=== PATIENT | female | born 1945 | race Caucasian/White ===

== ENCOUNTER 2025-05-03 10:19 | Inpatient (IN) ==
--- NOTE | 2025-04-16 15:06 | PAT Medication Instructions ---
Medication Instructions Date of Service April 16, 2025 Home Medications Medication Instructions Recorded meloxicam 15 mg tablet 15 mg PO DAILY #30 tabs 08/17/24 valsartan 160 mg tablet 160 mg PO QPM meloxicam 15 mg tablet 15 mg PO DAILY apixaban 5 mg tablet (Eliquis) 5 mg PO BID levothyroxine 50 mcg tablet 50 mcg PO QAM metoprolol succinate 25 mg tablet,extended release 24 hr 25 mg PO QPM hydrochlorothiazide 25 mg tablet 25 mg PO QAM ASK your surgeon for instructions meloxicam 15 mg tablet 15 mg PO DAILY ASK your prescriber and surgeon apixaban 5 mg tablet (Eliquis) 5 mg PO BID DO NOT take the morning of surgery hydrochlorothiazide 25 mg tablet 25 mg PO QAM Take morning of surgery With a small sip of water, OTHERWISE NOTHING TO EAT OR DRINK AFTER MIDNIGHT: levothyroxine 50 mcg tablet 50 mcg PO QAM Take evening before surgery valsartan 160 mg tablet 160 mg PO QPM metoprolol succinate 25 mg tablet,extended release 24 hr 25 mg PO QPM Other Notes If you have any questions please call us at [phone] or [phone] or [phone] or [phone]
--- NOTE | 2025-04-18 08:41 | Anesthesiology Consultation ---
Date of Service April 18, 2025 Assessment & Plan (1) Encounter for pre-operative examination: - pulmonology office visit 05/01/25 [facility]: "...preoperative pulmonary clearance...lung density noted on prior chest x-ray and pulmonary nodules identified on CT...remains asymptomatic from a respiratory standpoint...MMRC dyspnea scale = 4...asymptomatic with stable pulmonary nodules and incidental ground-glass opacity. No evidence of active infection or progressive lung disease...likely benign given lack of interval growth and absence of symptoms... considered low pulmonary risk for the planned procedure based on current findings and absence of respiratory symptoms...cleared from a pulmonary standpoint...recommend the routine post-op pulmonary care of early mobilization as soon as clinically feasible and use incentive spirometry regularly (10 breaths every hour while awake)..." - cardiology clearance 05/01/25 [facility]: "...fluid overload is better and I will clear you for your surgery..." - PCP pre-operative evaluation 04/23/25 [facility]: "...L3-L4 laminectomies...chronic afib, shortness of breath, no worse than usual, no ankle edema...will need to be seen by cardiology for clearance...no medical contraindications for the proposed surgery and anesthesia...get CT of the chest...scheduled for video visit (pulm) 04/30..." - Optimization forms to be faxed to [facility] (Dr. Марина Mims) due to dyspnea on exertion/notation on recently elevated BNP and pending optimization notation in [facility] EMR and [facility] PCP (Dr. Jethro Mckoy) with PAT testing. If cleared by cardiology and PCP, patient is acceptable to proceed. Patient made aware at PAT visit, surgeon's office made aware. - cardiology office visit 02/18/25 [facility]: "...atrial fibrillation with worsening shortness of breath...she suspects that gabapentin may be contributing to her shortness of breath...reduced the dose to once a day, noticing a slight improvement...has noticed weight gain since starting her medications...atrial fibrillation with rate control...no recent palpitations...continue metoprolol...monitor symptoms and fluid status...dyspnea occurs with exertion. Echocardiogram and Holter monitor suggest possible fluid retention due to mitral valve regurgitation and atrial fibrillation. Gabapentin may contribute to symptoms. Decision to delay diuretics until after travel...Contact cardiology upon return to discuss starting diuretics..." Chart Review Chart Review: Acceptable Risk for Surgery and Patient seen in Pre Admission Testing Teaching & Discussion Pre-Anesthesia Teaching/Discussion Notes: Instructed NPO after midnight before surgery, except medications with 15 cc of water. Medication instructions provided according to the PAT guidelines. History Surgery Operation Date: 05/03/25 11:20 Proposed Procedures p L3-L4 Laminectomies - Marcelo Dozier MD Height/Weight Height: 5 ft 3 in Weight: 97.4 kg Allergies Allergy/AdvReac Type Severity Reaction Status Date / Time No Known Allergies Allergy Verified 04/16/25 12:08 Medications Home Medications Medication Instructions Recorded Confirmed Last Taken valsartan 160 mg tablet 160 mg PO QPM 06/28/24 04/16/25 Unknown meloxicam 15 mg tablet 15 mg PO DAILY #30 tabs 08/17/24 04/16/25 Unknown apixaban 5 mg tablet (Eliquis) 5 mg PO BID 11/08/24 04/16/25 Unknown levothyroxine 50 mcg tablet 50 mcg PO QAM 11/08/24 04/16/25 Unknown metoprolol succinate 25 mg 25 mg PO QPM 11/08/24 04/16/25 Unknown tablet,extended release 24 hr hydrochlorothiazide 25 mg tablet 25 mg PO QAM 04/16/25 04/16/25 Unknown Past Medical History Medical History (Updated 04/18/25 @ 12:50 by Ely Armstrong PA-C) Atrial fibrillation on eliquis/metoprolol--follows with Dr. Mims @ [facility] Chronic back pain Hypertension controlled, stable per pt Hypothyroidism Incontinence bladder Prediabetes Patient denies h/o stroke, seizures, heart attack, heart failure, DM, blood clots/DVTs or blood transfusions. Exercise / Class Metabolic Activity III < 4 Walking/Shop/Light housework (Shortness of breath with usual activities and notes improvement with diuretic, denies chest discomfort with usual activities) Past Family History Family History Other No family history of adverse response to anesthesia Past Surgical History Surgical History History of appendectomy History of bilateral cataract extraction History of carpal tunnel release right 11/24/2018 History of left breast biopsy benign History of surgical removal of pilonidal cyst History of wisdom tooth extraction Past Anesthesia History No Hx of Anesthesia Complications and No Family Hx of Anesthesia Complications History of PONV No Hx of PONV and Hx of Motion Sickness Social History Smoking Status: Never smoker Do You Dip or Chew Tobacco: No Hx Alcohol Use: No Hx Substance Use: No substance use type: does not use Review of Systems Snoring in the past, denies witnessed apneas. Patient denies chest pain, shortness of breath, reflux, fever, chills, cough, wheezing, or palpitations. Physical Exam Vital Signs Vitals BP 140/86 P 98 TEMP 98.1 SP02 94% on RA RESP 17 Physical Patient resting comfortably in chair in no acute distress, alert and oriented, responding appropriately throughout visit Full cervical extension range of motion without pain TMD 3.5 finger breadths Mallampati Score 3 Dentition: intact, denies chipped or loose teeth, caps/crowns, implants or hadley dges Lungs: normal respiratory effort. Good air movement, clear throughout to auscultation, no adventitious breath sounds Cardiac: irregularly irregular rhythm, no murmurs noted Carotid arteries: negative bruit bilat Lab Results Anesthesia Preop Results Results Anesthesia Widget: WBC 8.05 K/ul (4.8-10.8) 04/18/25 Hgb 14.7 g/dL (12.0-16.0) 04/18/25 Hct 43.3 % (37.0-47.0) 04/18/25 Plt 267 K/uL (130-400) 04/18/25 Na 139 mmol/L (136-145) 04/18/25 K 4.0 mmol/L (3.5-5.1) 04/18/25 Cl 104 mmol/L (98-107) 04/18/25 CO2 27 mmol/L (21-32) 04/18/25 BUN 18 mg/dl (6-23) 04/18/25 Creat 0.73 mg/dl (0.6-1.2) 04/18/25 Glucose Level 106 mg/dl (70-99(Fasting)) H 04/18/25 PT 10.9 Seconds (9.0-12.0) 04/18/25 PTT 27 Seconds (21-31) 04/18/25 INR 1.0 (0.9-1.1) 04/18/25 HA1c 6.0 % (4.5-5.6) H 04/18/25 Blood Type A Negative 04/18/25 Antibody Screen NEGATIVE 04/18/25 Testing Laboratory Results 04/30/25 BNP: 488 Electrocardiogram Date: 04/18/25 Afib, rate 87 bpm Chest X-Ray Date: 04/18/25 Cardiomediastinal and hilar silhouettes are within normal limits. Atherosclerosis of the aorta. No pneumothorax, pleural effusion, airspace consolidation or pulmonary edema. 12 mm nodular density focus projects over the lateral left lung base. Bones appear grossly intact. IMPRESSION: 1. No acute process of the chest. 2. 12 mm nodular density projected over the lateral left lung base favors summation density. A precautionary follow-up chest CT recommended in order to exclude a pulmonary nodule. Echocardiogram Date: 12/31/24 EF 50-54% Afib during the examination LV wall motion is normal by limited analysis LA enlargement suggests diastolic LV dysfunction Mild aortic valve regurgitation; aortic valve sclerosis without stenosis Moderate mitral regurgitation Mild tricuspid regurgitation Mild pulmonary regurgitation Other Testing Chest CT 04/24/25 Bilateral pulmonary nodules, grossly unchanged Subpleural ground-glass opacity in the left upper lobe which may be secondary to inflammation/infection
[~2025-05-03 10:19] MED LIST: DEXAMETHASONE SOD INJ 4 MG/ML VIAL ONE; LIDOCAINE 2% 2 ML VIAL/AMP(20MG/ML) INFIL ONE; MIDAZOLAM HCL 1 MG/ML 2ML VIAL ONE; ONDANSETRON INJ 2 MG/ML 2 ML VIAL ONE; PROPOFOL IV EMULSION 10 MG/ML 20 ML VIAL IV ONE
--- NOTE | 2025-05-03 10:50 | History & Physical Bridge Note ---
Date of Service May 03, 2025 History & Physical Bridge Note I have examined the patient, reviewed the History & Physical and in the interval since the performance of the History & Physical I have noted the following changes of clinical significance: no changes noted. Plan for L3-4, L4-5 disc space decompression via Laminectomy at L3 and L4
[2025-05-03] MEDS: LR 15ML/HR IV SCH (10:59)
[2025-05-03] MEDS: ACETAMINOPHEN 500 MG TAB PO SCH (10:59)
[2025-05-03] MEDS ORDERED: LARYING-O-JET KIT (LTA) ONE (11:38)
[2025-05-03] MEDS ORDERED: ROCURONIUM BROMIDE 10 MG/ML 5 ML VIAL IV ONE (11:38)
[2025-05-03] MEDS ORDERED: ATROPINE SULFATE 0.1 MG/ML 10ML SYR IV PRN (12:09)
[2025-05-03] MEDS ORDERED: DROPERIDOL 5 MG/2 ML VIAL IV PRN (12:09)
[2025-05-03] MEDS ORDERED: DexMEDEtomidine HCL IV 100 MCG/ML VIAL IV ONE (13:13)
[2025-05-03] MEDS ORDERED: SUGAMMADEX SODIUM 200 MG/2 ML VIAL IV ONE (13:56)
[2025-05-03] MEDS: VANCOMYCIN HCL 1000MG/20ML VIAL ONE (14:02)
[2025-05-03] MEDS ORDERED: HYDROmorphone INJ 2 MG/ML SYR/VIAL ONE (14:18)
[2025-05-03] MEDS ORDERED: ONDANSETRON INJ 2 MG/ML 2 ML VIAL ONE (14:21)
[2025-05-03] MEDS: FLOSEAL HEMOSTATIC MATRIX 10ML TOP ONE (14:25)
[2025-05-03] MEDS: GELATIN SPONGE SZ 100 ONE (14:26)
[2025-05-03] MEDS: BUPIVACAINE 0.5 % 5 MG/1 ML MPF 30ML VIAL ONE (14:27)
--- NOTE | 2025-05-03 14:45 | Operative Report ---
Post Operative Report Procedure Date: May 03, 2025 PREOPERATIVE DIAGNOSES: 1. Lumbar stenosis with neurogenic claudication. 2. Lumbar radiculopathy. 3. Lumbar spondylosis. POSTOPERATIVE DIAGNOSES: 1. Lumbar stenosis with neurogenic claudication. 2. Lumbar radiculopathy. 3. Lumbar spondylosis. PROCEDURES PERFORMED: 1. L4-5 laminectomy with medial facetectomy (49170). 2. L3-4 laminectomy with medial facetectomy (06726). SURGEON: Marcelo Dozier MD TOBACCO SAMPLE PULLER: Eloy Agustin PA-C ANESTHESIA: General endotracheal. ESTIMATED BLOOD LOSS: 50 mL. SPECIMENS: None. DRAINS: Eyad. COMPLICATIONS: None. DISPOSITION: Stable to postanesthesia care unit. INDICATION FOR PROCEDURE: The patient has suffered from severe and unrelenting symptoms despite exhaustive conservative management. After discussing the benefits and risks of continued conservative management versus operative intervention, the patient elected to proceed with surgery. PROCEDURE IN DETAIL: Informed consent was obtained. The patient was taken to the operating room and anesthesia was initiated. The patient was placed prone on a Misbah table. The patients back was prepped and draped in typical sterile fashion. Antibiotics were administered. A timeout was performed. Preoperative fluoroscopy used to approximate the skin incision. A #10 blade was used to incise the skin. Bovie electrocautery was used to elevate the paraspinal musculature off of the lamina of L4, L3 and the superior portion of L5. Towel clamps placed on spinous process of L4 and L3 and a second x-ray was taken to confirm the appropriate levels. Using a high speed bur and Kerrison rongeur, a complete laminectomy of L4 was completed leaving adequate bone at the pars intra-articularis, the L4-5 facet capsules were preserved. Ligamentum flavum between L4 and L5 was removed. There was noted to be facet hypertrophy at L4-5. This was causing significant lateral recess stenosis. Therefore, a partial medial facetectomy was completed. The L5 traversing nerve root was confirmed to be completely decompressed bilaterally. Attention was then turned to L3-4. Using a high speed bur and Kerrison rongeur, a complete laminectomy of L3 was completed leaving adequate bone at the pars intra-articularis, the L3-4 facet capsules were preserved. Ligamentum flavum between L3-4 was removed. There was noted to be facet hypertrophy at L3-4. This was causing significant lateral recess stenosis. Therefore, a partial medial facetectomy was completed. The L4 traversing nerve root was confirmed to be completely decompressed bilaterally. The wound was thoroughly irrigated. Meticulous hemostasis was achieved. A subfascial drain was placed exiting through the skin. The fascia, subcutaneous and cutaneous were closed in layers using suture. A sterile dressing was placed. At the end of the case, all instrument and sponge counts were correct. The patient was awakened from anesthesia and taken to the postanesthesia care unit in stable condition. POSTOPERATIVE PLAN: The patient will be continued on 24 hours of antibiotics. Compression hoses and sequential compression devices will utilized for deep venous thrombosis prophylaxis.
--- NOTE | 2025-05-03 15:17 | Fluoroscopy Report ---
FL spine 1V any level CLINICAL HISTORY: L3-L4 and L4-L5 laminectomies. COMPARISON STUDY: Lumbar spine MRI April 02, 2025. Fluoroscopy time: 10 seconds. Number of fluoroscopic images: 2. Ka,r: 9.82 mGy. FINDINGS: Fluoroscopy was provided during lumbar spine laminectomy. Initial image demonstrates surgic al retractors and sponge markers which were not present on the subsequent image. Surgical drain is in place. Superior surgical instrument is directed over the posterior elements at the L3 level. The inf erior surgical instrument is directed over the posterior elements at the L5 level. IMPRESSION: Fluoroscopy provided during L3-L4 and L4-L5 laminectomies. ACT 112: Negative or not required by law. Electronically signed by: Clark Allen M.D. 05/03/2025 3:15 PM
[2025-05-03] MEDS: HYDROmorphone INJ 2 MG/ML SYR/VIAL IV PRN (15:30)
--- NOTE | 2025-05-03 16:32 | Anesthesiology Progress Note ---
Date of Service May 03, 2025 Anesthesia Post Procedure Vital Signs Vital Signs: Temp Pulse Pulse Resp BP Pulse Ox O2 Del Method 05/03/25 16:20 90 12 135/99 95 Nasal Cannula 05/03/25 16:05 36.6 C 86 12 155/76 H 98 Nasal Cannula 05/03/25 15:55 85 14 148/86 H 94 Nasal Cannula 05/03/25 15:45 89 14 133/79 98 Oxymask 05/03/25 15:35 89 12 147/90 H 98 Oxymask 05/03/25 15:25 92 H 16 137/75 94 Oxymask 05/03/25 15:15 97 H 12 148/86 H 97 Oxymask 05/03/25 15:05 36.4 C L 91 H 16 132/82 96 Oxymask 05/03/25 10:34 36.5 C 101 H 20 142/70 H 94 Room Air O2 Flow Rate 05/03/25 16:20 2 05/03/25 16:05 2 05/03/25 15:55 2 05/03/25 15:45 4 05/03/25 15:35 4 05/03/25 15:25 4 05/03/25 15:15 6 05/03/25 15:05 8 05/03/25 10:34 Pain Intensity Back: Pain Intensity: 6 Transfer of Care Handoff Completed per policy Notes Mental Status: alert / awake / arousable and participated in evaluation Patient Amnestic to Procedure: Yes Nausea / Vomiting: adequately controlled Pain: adequately controlled Airway Patency, RR, SpO2: stable & adequate BP & HR: stable & adequate Hydration State: stable & adequate Anesthetic Complications: no major complications apparent and Pt Satisfied with anesthetic care
[2025-05-03] MEDS ORDERED: ACETAMINOPHEN 1,000 MG/100 ML VIAL IV PRN (17:11)
[2025-05-03] MEDS ORDERED: HYDROmorphone INJ 1 MG/ML SYRINGE IV PRN (17:11)
[2025-05-03] MEDS ORDERED: SOD PHOSPHATE/SOD BIPHOSPHATE ENEMA 132 ML BTL PR PRN (17:11)
[2025-05-03] MEDS ORDERED: DO NOT ADMINISTER PNEUMOCOCCAL VACCINE PRN (17:11)
[2025-05-03] MEDS ORDERED: NALOXONE HCL 0.4 MG/1 ML VIAL/CARP IV PRN (17:11)
[2025-05-03] MEDS ORDERED: ACETAMINOPHEN 500 MG TAB PO PRN (17:11)
[2025-05-03] MEDS ORDERED: PROMETHAZINE 12.5 MG/50.5 ML BAG IV PRN (17:11)
[2025-05-03] MEDS ORDERED: FAMOTIDINE 20 MG TAB PO PRN (17:11)
[2025-05-03] MEDS ORDERED: ONDANSETRON INJ 2 MG/ML 2 ML VIAL IV PRN (17:11)
[2025-05-03] MEDS ORDERED: ALUMINUM/MAGNESIUM SUSP 30 ML UDC PO PRN (17:11)
[2025-05-03] MEDS ORDERED: diphenhydrAMINE Capsule 25 MG CAP PO PRN (17:11)
[2025-05-03] MEDS ORDERED: METOCLOPRAMIDE HCL INJ 5 MG/ML 2 ML VIAL IV PRN (17:11)
[2025-05-03] MEDS ORDERED: HYDROmorphone INJ 0.5 MG/0.5 ML SYR IV PRN (17:11)
[2025-05-03] MEDS ORDERED: MAGNESIUM HYDROXIDE SUSP 30 ML UDC PO PRN (17:11)
[2025-05-03] MEDS ORDERED: DO NOT ADMINISTER FLU VACCINE PRN (17:11)
[2025-05-03] MEDS: KETOROLAC TROMETHAMINE 15 MG/ML VIAL IV SCH (17:47)
[2025-05-03] MEDS: LACTATED RINGER'S 1,000 ML IV SCH (17:47)
[2025-05-03] MEDS: LR 60ML/HR IV SCH (18:32)
--- NOTE | 2025-05-03 18:57 | Consultation ---
Date of Consultation May 03, 2025 Assessment & Plan (1) Lumbar radiculopathy: (2) Hypercholesteremia: (3) Chronic back pain: (4) Hypothyroidism: (5) Hypertension: (6) Atrial fibrillation: Plan 79 yo female with pmhx of HLD, hypothyroidism, chronic atrial fibrillation (on eliquis) who presents for a lumbar laminectomy for lumbar radiculopathy. #S/p Lumbar Laminectomy #Lumbar Radiculopathy #Chronic Back Pain -POD 0 -50 cc EBL during procedure, no immediate post operative complications Plan: -incentive spirometer -trend Hgb, leukocytosis, creatinine in AM -meds simplified to reduce polypharmacy #HLD -f/u outpatient #Hypothyroidism -continue levothyroxine #Chronic Atrial Fibrillation -restart blood thinners post op per ortho I spent a total of 40 minutes in direct patient care, including [id number] time with the patient and/or family, reviewing medical records, ordering and reviewing diagnostic tests, and coordinating care with other healthcare providers. This time includes: history taking, physical examination, medical decision making, counseling, ECG interpretation, imaging interpretation, lab interpretation, orders, and education, excluding time spent in the performance of separately billed services. History of Present Illness Requesting Physician: Dr. Dozier Reason for Consultation: -medicine consult Attending Physician: Marcelo Dozier MD History of Present Illness 79 yo female with pmhx of HLD, hypothyroidism, chronic atrial fibrillation (on eliquis) who presents for a lumbar laminectomy. She has no prior admissions at [facility]. Patient seen and examined at bedside shortly after arriving on the floor. 2 family members present. Patient in and out of alertness given anesthesia. States she is in pain at the operative site. No shooting pain down legs. Slightly lightheaded but otherwise ok. Denies chest pain, SOB, nausea, or vomiting. Patient very hungry. Allergies Allergy/AdvReac Type Severity Reaction Status Date / Time No Known Allergies Allergy Verified 05/03/25 10:30 Home Medications Medication Instructions Recorded Confirmed Type valsartan 160 mg tablet 160 mg PO QPM 06/28/24 05/03/25 History meloxicam 15 mg tablet 15 mg PO DAILY #30 tabs 08/17/24 05/03/25 Rx apixaban 5 mg tablet (Eliquis) 5 mg PO BID 11/08/24 05/03/25 History levothyroxine 50 mcg tablet 50 mcg PO QAM 11/08/24 05/03/25 History metoprolol succinate 25 mg 25 mg PO QPM 11/08/24 05/03/25 History tablet,extended release 24 hr hydrochlorothiazide 25 mg tablet 25 mg PO QAM 04/16/25 05/03/25 History Patient History Medical History Prediabetes Chronic back pain Incontinence bladder Hypothyroidism Hypertension controlled, stable per pt Atrial fibrillation on eliquis/metoprolol--follows with Dr. Mims @ [facility] Surgical History History of left breast biopsy benign History of surgical removal of pilonidal cyst History of appendectomy History of wisdom tooth extraction History of bilateral cataract extraction History of carpal tunnel release right 11/24/2018 Family History Other No family history of adverse response to anesthesia Social History Smoking Status: Never smoker Second Hand Exposure: No; Do You Dip or Chew Tobacco: No; Tobacco Cessation Education Requested by Patient: No Hx Alcohol Use: No Hx Substance Use: No Preferred Language: Uzbek Communication Ability: Effective Visual Impairment: Limited Hearing Ability: Normal Show Card Writer Required: No Beliefs That Will Affect Care: None Current Living Situation: Alone current occupational status: retired Other Information That Helps Us Care for You: No Feels Safe at Home: Yes Safety Concerns: Feels Safe At This Time Assistive Devices: Glasses Review of Systems Review of Systems: -negative unless listed above Physical Exam Physical Exam: Gen: A&O 3 NAD, class II obesity HEENT: NCAT, EOMI, not icteric. External ears normal. No rhinorrhea. Moist mucous membranes. Neck: Supple, full range of motion, no observable masses, No meningeal sign. Lungs: No Respiratory distress. CV: RRR, no edema. Abdomen: Soft, nondistended, No rebound tenderness. MSK: No joint swelling, no redness. Skin: No rashes, petechiae, lesions. Normal color per patient. Neuro: Normal Gait, Grossly intact. Psych: Appropriate for situation. Results & Data Vital Signs (Past 12 Hours) Vital Signs Temp Pulse Pulse Resp BP Pulse Ox O2 Del Method 05/03/25 17:40 36.4 C L 90 17 135/91 97 Nasal Cannula 05/03/25 17:10 36.7 C 92 H 18 167/80 H 94 Nasal Cannula 05/03/25 16:40 36.5 C 98 H 18 156/89 H 95 Nasal Cannula 05/03/25 16:40 Nasal Cannula 05/03/25 16:20 90 12 135/99 95 Nasal Cannula 05/03/25 16:05 36.6 C 86 12 155/76 H 98 Nasal Cannula 05/03/25 15:55 85 14 148/86 H 94 Nasal Cannula 05/03/25 15:45 89 14 133/79 98 Oxymask 05/03/25 15:35 89 12 147/90 H 98 Oxymask 05/03/25 15:25 92 H 16 137/75 94 Oxymask 05/03/25 15:15 97 H 12 148/86 H 97 Oxymask 05/03/25 15:05 36.4 C L 91 H 16 132/82 96 Oxymask 05/03/25 10:34 36.5 C 101 H 20 142/70 H 94 Room Air O2 Flow Rate 05/03/25 17:40 2 05/03/25 17:10 2 05/03/25 16:40 2 05/03/25 16:40 2 05/03/25 16:20 2 05/03/25 16:05 2 05/03/25 15:55 2 05/03/25 15:45 4 05/03/25 15:35 4 05/03/25 15:25 4 05/03/25 15:15 6 05/03/25 15:05 8 05/03/25 10:34 Medications Administered Lactated Ringer's (Lr) 1,000 mls @ 100 mls/hr IV .Q10H ROXANA Stop: 05/04/25 08:00 Last Admin: 05/03/25 17:47 Dose: 100 mls/hr Documented By: cak Ketorolac Tromethamine (Ketorolac Tromethamine 15 Mg/Ml Vial) 15 mg IV Q6H ROXANA Stop: 05/04/25 12:01 Last Admin: 05/03/25 17:47 Dose: 15 mg Documented By: [email or web address]
[2025-05-03] MEDS: METOPROLOL SUCC 25MG EXT REL TAB PO SCH (21:46)
[2025-05-03] MEDS: DOCUSATE SODIUM/SENNA 50/8.6MG TAB PO SCH (21:46)
[2025-05-04] MEDS: POLYETHYLENE (MIRALAX) 17 GM PACK PO SCH (05:14)
[2025-05-04] MEDS: LEVOTHYROXINE SODIUM 50 MCG TABLET PO SCH (05:16)
[2025-05-04 06:08] LABS: Hematocrit (blood only) 38.4 % (37.0-47.0); Hemoglobin 12.8 g/dL (12.0-16.0); Mean Corpuscular Hemoglobin 29.7 pg (25.0-34.0); Mean Corpuscular Volume 89.1 fL (80.0-100.0); Platelet Count 318 K/uL (130-400); RDW Standard Deviation 43.4 fL (36.4-46.3); Red Blood Count 4.31 M/uL (4.20-5.40); White Blood Count 11.89 K/ul (4.8-10.8)
[2025-05-04 06:28] LABS: Anion Gap 7.0 (3-11); Blood Urea Nitrogen 19.0 mg/dl (6-23); Calcium 8.7 mg/dl (8.6-10.3); Carbon Dioxide 24.0 mmol/L (21-32); Chloride 106.0 mmol/L (98-107); Creatinine Clr Calc Pharmacy 76.4 ml/min; Glucose 146.0 mg/dl (70-99(Fasting)); Potassium 3.8 mmol/L (3.5-5.1); Sodium 137.0 mmol/L (136-145)
--- NOTE | 2025-05-04 07:46 | Hospitalist Progress Note ---
Date of Service May 04, 2025 Assessment & Plan (1) Lumbar radiculopathy: (2) Hypercholesteremia: (3) Chronic back pain: (4) Hypothyroidism: (5) Hypertension: (6) Atrial fibrillation: (7) Status post lumbar laminectomy: Plan 79 yo female with pmhx of HLD, hypothyroidism, chronic atrial fibrillation (on Eliquis) who presents for a lumbar laminectomy for lumbar radiculopathy. #S/p Lumbar Laminectomy #Lumbar Radiculopathy #Chronic Back Pain POD 1 s/p L3-4 laminectomy with medial facetectomy and L4-5 laminectomy with medial facetectomy by Dr. Dozier Per ortho for pain control, wound care, anticoagulation and activities Monitor H&H (hgb stable at 12.8, EBL 50ml) Continue incentive spirometry, PT/OT when appropriate #HLD F/u outpatient #Hypothyroidism Continue levothyroxine #Chronic Atrial Fibrillation Resume Eliquis post op as per ortho - later today Patient seen in collaboration with Dr. Michael. Please see addendum. I spent a total of 35 minutes coordinating, documenting, and providing care for this patient excluding time spent in the performance of separately billed services or time spent by another provider/QHP. Admission and Anticipated Discharge Date Admission Date: May 03, 2025 Supervising Physician Co-Signing Physician Notes 05/04/2025 The patient was seen and examined in the medical floor in presence of the daughter She is a status post L3-L4 laminectomies on 05/03/2025 Has been doing much better following the surgery and complains to have ongoing back pain without radiation Denies any other significant symptoms On examination Lying in bed without any significant discomfort except some back pain Remains hemodynamically stable Chest was clear to auscultate bilaterally HeartS1-S2, regular Abdomenbenign Extremitiestrace edema bilaterally Her labs, imaging studies, medications reviewed Status post L3-L4 laminectomies and has been having minimal pain in the back without any other significant symptoms Her other significant medical conditions remained stable as above Agree with assessment plan as outlined above by Patricia Decker PA-C and take the full responsibility of care in the hospital I spent a total of 20 minutes seeing the patient, examining her, reviewing the chart and medications, and managing care. Dr Samantha Michael Subjective Seen and examined 312 with daughters at bedside. Pain is minimal at rest but no tices some surgical site discomfort with any movement. Waiting to work with PT today. No pain or paresthesias in lower extremities. No issues tolerating diet. Nursing about to remove Rouse catheter. No postop flatus yet. No fever, chills, chest pain or shortness of breath. Review of Systems Review of Systems: At least ten systems reviewed and negative except as noted in the HPI. Physical Exam Physical Exam: Gen: WD/WN, NAD, resting in bed, A&Ox3 HEENT: Normocephalic, atraumatic, mucous membranes moist Lung: Clear to Auscultation bilaterally Heart: Regular rate, regular rhythm Abdomen: Soft, NT, ND +BS x 4 : + Rouse Extremities: + Spinal dressing c/d/i, ELVIS drain visualized Skin: Warm, no rash Results & Data Results & Data Vital Signs (Past 12 Hours) Vital Signs Temp Pulse Resp BP BP Pulse Ox O2 Del Method 05/04/25 07:01 36.9 C 77 17 105/67 95 Room Air 05/04/25 03:26 36.5 C 87 20 116/62 95 Room Air 05/04/25 00:00 36.5 C 83 16 124/74 96 Room Air 05/03/25 20:00 36.4 C L 91 H 16 117/71 96 Room Air Laboratory Results Short CBC 05/04/25 Range/Units 05:45 WBC 11.89 H (4.8-10.8) K/ul Hgb 12.8 (12.0-16.0) g/dL Hct 38.4 (37.0-47.0) % Plt Count 318 (130-400) K/uL BMP 05/04/25 05:45 Sodium 137 Potassium 3.8 Chloride 106 Carbon Dioxide 24 BUN 19 Creatinine 0.67 Glucose 146 H Calcium 8.7 Diagnostic Findings Spine X-Ray 05/03/25 11:20 FL spine 1V any level CLINICAL HISTORY: L3-L4 and L4-L5 laminectomies. COMPARISON STUDY: Lumbar spine MRI April 02, 2025. Fluoroscopy time: 10 seconds. Number of fluoroscopic images: 2. Ka,r: 9.82 mGy. FINDINGS: Fluoroscopy was provided during lumbar spine laminectomy. Initial image demonstrates surgical retractors and sponge markers which were not present on the subsequent image. Surgical drain is in place. Superior surgical instrument is directed over the posterior elements at the L3 level. The inferior surgical instrument is directed over the posterior elements at the L5 level. IMPRESSION: Fluoroscopy provided during L3-L4 and L4-L5 laminectomies. ACT 112: Negative or not required by law. Electronically signed by: Clark Allen M.D. 05/03/2025 3:15 PM
--- NOTE | 2025-05-04 09:20 | Orthopedic Progress Note ---
Date of Service May 04, 2025 Assessment & Plan (1) Status post lumbar laminectomy: (2) Spinal stenosis of lumbar region: (3) Lumbar radiculopathy: Plan WBAT, AAT Pain control-po oxy/tylenol, muscle relaxers Mobilize as tolerated SCDs, restart eliquis later today monitor drain, will keep overnight as restarting home anticoagulation diet as tolerated Subjective s/p lumbar decompression, KALEY overnight, pain controlled Review of Systems All systems reviewed & are unremarkable except as noted in HPI & below. Physical Exam 5/5 L2-S1 myotomes SILT L2-S1 dermatomes Drain with low output overnight Results & Data Results & Data Laboratory Results . Diagnostic Findings . PG Care Time/CCT Total # of Minutes Spent Total Time Spent with Patient: Total time spent is greater than 50% in coordination of care (as documented) at patient's floor/unit and/or counseling patient: Coding Level of Care Code 56901 Post Operative Follow-Up Diagnoses Status post lumbar laminectomy Z98.890 Spinal stenosis of lumbar region without neurogenic claudication M48.061 Neurogenic claudication status: without neurogenic claudication Lumbar radiculopathy M54.16 (2) Spinal stenosis of lumbar region Neurogenic claudication status: without neurogenic claudication Qualified Code(s): M48.061 - Spinal stenosis, lumbar region without neurogenic claudication
[2025-05-04] MEDS: hydroCHLOROthiazide 25 MG TAB PO SCH (09:44)
[2025-05-04] MEDS: VALSARTAN 80 MG TAB PO SCH (21:12)
[2025-05-04] MEDS: APIXABAN 5 MG TABLET PO SCH (21:12)
[2025-05-05] MEDS: ONDANSETRON 4 MG OD TAB PO PRN (04:46)
--- NOTE | 2025-05-05 08:03 | Hospitalist Progress Note ---
Date of Service May 05, 2025 Assessment & Plan (1) Lumbar radiculopathy: (2) Hypercholesteremia: (3) Chronic back pain: (4) Hypothyroidism: (5) Hypertension: (6) Atrial fibrillation: (7) Status post lumbar laminectomy: Plan This is a 79 yo female with PMH of HLD, hypothyroidism, chronic atrial fibrillation (on Eliquis) who presents for a lumbar laminectomy for lumbar radiculopathy. #S/p Lumbar Laminectomy #Lumbar Radiculopathy #Chronic Back Pain POD 2 s/p L3-4 laminectomy with medial facetectomy and L4-5 laminectomy with medial facetectomy by Dr. Dozier Per ortho for pain control, wound care, anticoagulation and activities Monitor H&H (hgb stable at 13.5, EBL 50ml) Continue incentive spirometry, PT/OT when appropriate #Nausea, abdominal bloating No post op bowel movement , + nausea and bloating today Bowel regimen has consisted of Colace, Miralax, Senokot Obtain KUB to rule out obstruction #HLD F/u outpatient #Hypothyroidism Continue levothyroxine #Chronic Atrial Fibrillation Eliquis resumed evening of 05/04 Patient seen in collaboration with Dr. Michael. I spent a total of 35 minutes coordinating, documenting, and providing care for this patient excluding time spent in the performance of separately billed services or time spent by another provider/QHP. Admission and Anticipated Discharge Date Admission Date: May 03, 2025 Supervising Physician Co-Signing Physician Notes 05/04/2025 The patient was seen and examined in the medical floor in presence of the daughter She is a status post L3-L4 laminectomies on 05/03/2025 Has been doing much better following the surgery and complains to have ongoing back pain without radiation Denies any other significant symptoms On examination Lying in bed without any significant discomfort except some back pain Remains hemodynamically stable Chest was clear to auscultate bilaterally HeartS1-S2, regular Abdomenbenign Extremitiestrace edema bilaterally Her labs, imaging studies, medications reviewed Status post L3-L4 laminectomies and has been having minimal pain in the back without any other significant symptoms Her other significant medical conditions remained stable as above Agree with assessment plan as outlined above by Patricia Decker PA-C and take the full responsibility of care in the hospital I spent a total of 20 minutes seeing the patient, examining her, reviewing the chart and medications, and managing care. Dr Samantha Michael 05/05/2025 The patient was seen and examined in medical floor in presence of the daughters She has been complaining of some abdominal discomfort without distention, nausea and/or vomiting She has been passing gas but bowel has not moved KUB showed Distended bowel loops but no definite obstruction Remains hemodynamically stable Physical examination remains unremarkable and abdomen is benign and mildly distended and nontender If the patient is comfortable enough going home that will be okay as long as she keeps moving and takes the laxatives If she is able to void we can give her Fleet enema and after bowel movement she can be discharged Agree with assessment plan as outlined above by Patricia Decker PA-C and take the full responsibility of care in the hospital I spent a total of 20 minutes evaluating the patient, examining her, reviewing the chart and also the investigation and plan of care with DR Samantha michael The patient withdrawn has had bowel movement following Fleet enema but her condition deteriorated with Increasing abdominal distention and pain, tachycardia and the patient was becoming lethargic Intravenous fluid was administered with intravenous Tylenol and the patient kept n.p.o. Will get a CAT scan of the abdomen to rule out any possibilities of obstruction and discharge was canceled for today. The family members are aware and agreeable. DR Samantha Michael Subjective Seen and examined 312 with daughters at bedside. ELVIS drain removed by ortho surgery, ambulating in the halls with PT. Feeling bloated today with nausea and decreased appetite. Passing minimal flatus. No vomiting. Review of Systems Review of Systems: At least ten systems reviewed and negative except as noted in the HPI. Physical Exam Physical Exam: Gen: WD/WN, NAD, sitting in bedside chair, A&Ox3 HEENT: Normocephalic, atraumatic, mucous membranes moist Lung: Clear to Auscultation bilaterally Heart: Regular rate, regular rhythm Abdomen: Soft but distended, NT, +BS hyperactive Extremities: + Spinal dressing c/d/i Skin: Warm, no rash Results & Data Results & Data Vital Signs (Past 12 Hours) Vital Signs Temp Pulse Resp BP Pulse Ox O2 Del Method 05/05/25 07:11 37.0 C 98 H 18 119/69 93 Room Air 05/04/25 21:09 36.6 C 105 H 18 133/75 94 Room Air Laboratory Results Short CBC 05/05/25 Range/Units 07:48 WBC 14.57 H (4.8-10.8) K/ul Hgb 13.5 (12.0-16.0) g/dL Hct 41.5 (37.0-47.0) % Plt Count 303 (130-400) K/uL BMP 05/05/25 07:48 Sodium 138 Potassium 3.7 Chloride 104 Carbon Dioxide 26 BUN 17 Creatinine 0.61 Glucose 112 H Calcium 8.9 Diagnostic Findings Spine X-Ray 05/03/25 11:20 FL spine 1V any level CLINICAL HISTORY: L3-L4 and L4-L5 laminectomies. COMPARISON STUDY: Lumbar spine MRI April 02, 2025. Fluoroscopy time: 10 seconds. Number of fluoroscopic images: 2. Ka,r: 9.82 mGy. FINDINGS: Fluoroscopy was provided during lumbar spine laminectomy. Initial image demonstrates surgical retractors and sponge markers which were not present on the subsequent image. Surgical drain is in place. Superior surgical instrument is directed over the posterior elements at the L3 level. The inferior surgical instrument is directed over the posterior elements at the L5 level. IMPRESSION: Fluoroscopy provided during L3-L4 and L4-L5 laminectomies. ACT 112: Negative or not required by law. Electronically signed by: Clark Allen M.D. 05/03/2025 3:15 PM
[2025-05-05 08:27] LABS: Hematocrit (blood only) 41.5 % (37.0-47.0); Hemoglobin 13.5 g/dL (12.0-16.0); Mean Corpuscular Hemoglobin 29.5 pg (25.0-34.0); Mean Corpuscular Volume 90.6 fL (80.0-100.0); Platelet Count 303 K/uL (130-400); RDW Standard Deviation 44.1 fL (36.4-46.3); Red Blood Count 4.58 M/uL (4.20-5.40); White Blood Count 14.57 K/ul (4.8-10.8)
[2025-05-05 08:44] LABS: Anion Gap 8.0 (3-11); Blood Urea Nitrogen 17.0 mg/dl (6-23); Calcium 8.9 mg/dl (8.6-10.3); Carbon Dioxide 26.0 mmol/L (21-32); Chloride 104.0 mmol/L (98-107); Creatinine Clr Calc Pharmacy 83.9 ml/min; Glucose 112.0 mg/dl (70-99(Fasting)); Potassium 3.7 mmol/L (3.5-5.1); Sodium 138.0 mmol/L (136-145)
--- NOTE | 2025-05-05 09:25 | Orthopedic Progress Note ---
Date of Service May 05, 2025 Assessment & Plan (1) Status post lumbar laminectomy: Plan mobilize as tolerated home eliquis resumed pain controlled, voiding home today Subjective doing well this AM, ambulating halls with PT on arrival, no leg complaints, c/o incisional pain. Review of Systems All systems reviewed & are unremarkable except as noted in HPI & below. Physical Exam neuro exam stable, nodeficits ELVIS drain with low output, removed and dressing changed incision c/d/i Results & Data Results & Data Laboratory Results . Diagnostic Findings . PG Care Time/CCT Total # of Minutes Spent Total Time Spent with Patient: Total time spent is greater than 50% in coordination of care (as documented) at patient's floor/unit and/or counseling patient: Coding Level of Care Code 64124 Post Operative Follow-Up Diagnoses Status post lumbar laminectomy Z98.890
--- NOTE | 2025-05-05 09:32 | Discharge Summary ---
Date of Service May 05, 2025 Principal Diagnosis Same as "Discharge Diagnosis" noted below under Discharge Instructions. Discharge Exam neuro exam stable, nodeficits ELVIS drain with low output, removed and dressing changed incision c/d/i Discharge Data Consultations 05/03/25 17:11 Consult Hospitalist Routine Procedures Performed Operation Date: 05/03/25 11:20 Actual Procedures p L3-L4 Laminectomies(Not Applicable) - Marcelo Dozier MD Ordered Studies 05/03/25 11:20 FL spine 1V any level Routine Hospital Course (1) Status post lumbar laminectomy: (2) Lumbar radiculopathy: (3) Lumbar spondylosis: (4) Lumbar stenosis with neurogenic claudication: Plan Patient was admitted postoperatively for pain control and mobilization with physical therapy. They worked with physical therapy and met all goals. Pain was controlled with IV pain medication and transitioned to oral medications. Normal return of bowel and bladder function. They worked with physical therapy, vital signs were acceptable, no need for transfusion, deemed safe for discharge. PG Care Time/CCT Total # of Minutes Spent Total Time Spent with Patient: Total time spent is greater than 50% in coordination of care (as documented) at patient's floor/unit and/or counseling patient: Discharge Plan Discharge Items Patient Disposition: Home - Self-Care Reason For Visit: Lumbar Facet Snydrome, Facet Arthropathy Discharge Diagnosis: s/p L3-4, 4-5 laminectomy w/ medial facetectomy Condition on Discharge: Good Activity: As commented below Lifting: No more than 5 pounds Weightbearing: Full weightbearing Non-emergency contact: Surgeon Call non-emergency contact if: your pain is worsening, your temperature is above 101 and your wound has increased drainage Follow-up/Referrals: Jethro Mckoy MD [Primary Care Provider] - Diet: Regular Addtl Attending Provider Instructions: Instructions for Non-Fusion Spine Surgery YOU WILL BE PROVIDED WITH A PRESCRIPTION STRENGTH ANTI-INFLAMMATORY MEDICATION. THIS WILL BE THE BEST PAIN MEDICATION FOR THE TYPE OF PAIN YOU WILL EXPERIENCE. DO NOT TAKE ANY HERBAL SUPPLEMENTS MEDICATIONS: Toradol or other prescription non-steroidal anti-inflammatory drugs (NSAIDs): take for 3 days post op for pain control, as long as you do not have a contraindication for NSAIDs from your primary care physician. Oxycodone, Percocet, or Hydrocodone For breakthrough pain. Cyclobenzaprine (Flexeril), Tizanide (Zanaflex), or Methocarbamol (Robaxin) For muscle spasms. Senna-s and Miralax Senna-S twice daily, 17g packet of Miralax with water once daily while taking narcotics. These medications prevent constipation caused by the pain medications. Ondansetron (Zofran) For nausea Cephalexin (Keflex) or Sulfamethoxazole/trimethoprim (Bactrim). Antibiotic. You are given IV antibiotics while in the hospital; you may or may not be given a prescription for home; this will be decided after surgery. Your pre-surgery prescription medications With the exception of anti- inflammatory medications, blood thinners (Coumadin, Plavix, Eliquis, Pradaxa, etc}, or narcotic pain medications, you may resume your home medications. For the above medications, you will be given specific instructions. ACTIVITIES: Walking Walking is mandatory. You need to walk at least once every hour while awake. Walking will help prevent blood clots in your legs and help prevent spasms in your back. Bending/twisting It is safe to gently bend, roll over, sit up, lie on your back and do other normal activities. You may sleep in any position that is comfortable. Avoid athletic activities until further notice. Lifting Do not lift more than 10 lbs until further notice. Driving You may drive when you are no longer taking narcotic pain medications, can safely operate the brake/gas/clutch pedals, and can move your head/neck for visibility. Tobacco All tobacco products are strictly prohibited after surgery. Any use will dramatically increase your risk of complications. This includes vapor cigarettes, marijuana, nicotine patches and gums. Bracing/Cervical Collar Not required; if you are provided a soft collar it is for comfort and may be worn as desired. SURGICAL DRESSING Initial operative dressing is to stay on for 2 days; you may change if it becomes saturated. From then on, change the dressing daily with dry gauze and paper tape. Continue to change dressing until there is no discharge on the dressing. Once there is no discharge on the dressing, you may leave the incision open to air and make sure to keep it out of the sun. For supplies, stop by any local pharmacy. Any type of gauze dressing is acceptable. Do not put any ointments on the wound. SHOWERING You may shower 48 hours after your surgery. Cover the incision with Saran Wrap and tape the edges to prevent water from contacting the incision. If water contacts the incision, pat dry. No baths or submerging the incision until seen in the clinic at follow up appointment. QUESTIONS Please contact the office with questions or concerns: [phone] If outside normal business hours, you will be connected with the on-call physician. Pending Studies at Discharge: No Stand-Alone Forms: My [facility], Smoking Cessation Medications and DC Order Prescriptions: New tizanidine 4 mg Tablet 4 mg PO Q8H PRN (Reason: muscle spasticity) 30 Days Qty: 90 1RF acetaminophen [Tylenol Extra Strength] 500 mg Tablet 1,000 mg PO Q8H PRN (Reason: pain) Qty: 60 0RF oxycodone 5 mg Tablet 5 - 10 mg PO Q6H PRN (Reason: pain) Qty: 30 0RF sennosides-docusate sodium [Senokot-S] 8.6-50 mg Tablet 2 tab PO HS Qty: 30 0RF polyethylene glycol 3350 [Miralax] 17 gram Powder In Packet 17 g PO DAILY Qty: 30 0RF Continued levothyroxine 50 mcg tablet 50 mcg PO QAM Eliquis 5 mg tablet 5 mg PO BID metoprolol succinate 25 mg tablet extended release 24 hr 25 mg PO QPM valsartan 160 mg tablet 160 mg PO QPM hydrochlorothiazide 25 mg Tablet 25 mg PO QAM Discontinued meloxicam 15 mg tablet 15 mg PO DAILY Qty: 30 2RF Patient Comments: pt states she is trying to stop med per surgeon instructions Discharge Orders: Discharge Order (Routine); Ordered 05/05/25 Ordered By: Marcelo Dozier Admission Data Admit Date/Time: 05/03/25 12:24 Attending Provider: Marcelo Dozier Admit Provider: Marcelo Dozier Primary Care Provider: Jethro Mckoy I. Other Providers: Pamela Elliott; Aubrie Berger I.; Kay Ribeiro; Kamari Michael; Josie Eli; Meeta Mcgraw; Patricia Decker; Angelo Kiran; Kehinde Neff; Mor Steele; Simone Almazan; Igor Tomlin; Gavin Jackson; Latoya Hays; Leyla Lal; Catrachita English; Abena Hidalgo; Kianna Gilbert I.; Mckinley Akers; Yana Clifton; Beau Wade; González Bueno; Maritza Coker; [place]; Kamran Oglesby; Mio Weiss; Luanne Solis; Robinson James; Lance Page; Stephanie Angela; Karma Szymanski; Karma Moyer; Arie Madrid
--- NOTE | 2025-05-05 11:14 | XRay Report ---
2 views of the abdomen were obtained Findings: There are mildly prominent air-filled loops of small and large bowel that may be due to ileus. No renal or ureteral calculi are seen. There are surgical skin bere. No osseous abnormality is seen Impression: Mildly prominent bowel loops that may be due to ileus. Obstruction is less likely but cannot be excluded Electronically signed by Wes Rivas 05-05-2025 11:13 AM
[2025-05-05] MEDS: SOD PHOSPHATE/SOD BIPHOSPHATE ENEMA 132 ML BTL PR STA (12:29)
[2025-05-05] MEDS ORDERED: ACETAMINOPHEN 1,000 MG/100 ML VIAL IV PRN (16:47)
--- NOTE | 2025-05-05 16:56 | Communication Note ---
Date of Service: May 05, 2025 Planned dc today but KUB ordered in response to nausea and abd bloating with findings of "Mildly prominent bowel loops that may be due to ileus. Obstruction is less likely but cannot be excluded". Had a bowel movement but notified by RN around 1600 that she had increased abd pain and nausea with episode of vomiting. Lethargic now, BP 165/97, HR 115. Made NPO until CT abd/pelvis results, resume IV fluids, antiemetics, IV tylenol. Avoid narcotics as able. Updated family at bedside, primary team aware. Morris Decker PA-C
[2025-05-05] MEDS: ONDANSETRON INJ 2 MG/ML 2 ML VIAL IV STA (17:12)
[2025-05-05] MEDS: ACETAMINOPHEN 1,000 MG/100 ML VIAL IV SCH (17:15)
--- NOTE | 2025-05-05 18:45 | CT Scan Report ---
INDICATION: Abdominal pain, nausea, vomiting COMPARISON: None TECHNIQUE: Contiguous axial CT images were obtained through the abdomen and pelvis. Dose reduction according to patient size and/or automated exposure control techniques have been utilized for this exam. FINDINGS: CT ABDOMEN: LUNG BASES: Cardiomegaly. Coronary artery calcifications. Minor bibasilar atelectasis or infiltrates. LIVER: No worrisome hepatic lesions. Multiple hepatic granulomas. SPLEEN: Multiple splenic granulomas. GALLBLADDER: Unremarkable. KIDNEYS: No hydronephrosis or nephrolithiasis. No solid renal lesions. PANCREAS: Unremarkable. ADRENAL GLANDS: Unremarkable. PROXIMAL BOWEL: No small bowel obstruction. RETROPERITONEUM: No AAA. No significant lymphadenopathy. OTHER: No abscess. CT PELVIS: URETERS: Unremarkable. URINARY BLADDER: No bladder calculi. PELVIC ORGANS: Unremarkable. DISTAL BOWEL: Abnormal diffuse thickening of the descending colon. Colitis changes are suspected. Question of intussusception in the proximal portion of the descending colon near the splenic flexure for example axial image 102, coronal image 69. Distended ascending and transverse colon with air and fecal material. Large amount of fecal material noted in the rectum. OTHER: No significant lymphadenopathy. There is no free pelvic fluid. IMPRESSION: Suspect significant diffuse colitis changes of the descending colon. Question of an area of intussusception in the proximal portion of the ascending colon. Minor bibasilar atelectasis or infiltrates. Electronically signed by Julian Perry 05-05-2025 6:44 PM
--- NOTE | 2025-05-05 19:12 | Communication Note ---
Date of Service: May 05, 2025 The patient was seen and examined at around 7 PM She has been feeling better though the abdomen remains distended but soft Denies any abdominal pain no more nausea no vomiting She has been passing gas and mobile following enema this afternoon CT of the abdomen showed nonspecific colitis with a possible intussusception but examination does not support that Will check a stool for C. difficile colitis but started intravenous Unasyn for possible nonspecific colitis as it involves larger segment Will keep her n.p.o. give some IV fluid and if needed will get a surgery evaluation in the morning her blood pressure has been improved Discussed with the family members Dr Samantha Michael
[2025-05-05] MEDS ORDERED: NITROGLYCERIN 2% OINTMENT 30GM TUBE EXT SCH (19:15)
[2025-05-05] MEDS: SODIUM CHLORIDE 0.9% 1,000 ML IV SCH (20:22)
[2025-05-05] MEDS: AMPICILLIN/SULBACTAM SOD 3,000 MG/100 ML BAG IV SCH (20:22)
[2025-05-05] MEDS ORDERED: Nursing to Pharmacy Communication SCH (20:30)
[2025-05-06 04:27] LABS: Hematocrit (blood only) 38.8 % (37.0-47.0); Hemoglobin 12.8 g/dL (12.0-16.0); Mean Corpuscular Hemoglobin 29.7 pg (25.0-34.0); Mean Corpuscular Volume 90.0 fL (80.0-100.0); Platelet Count 276 K/uL (130-400); RDW Standard Deviation 43.4 fL (36.4-46.3); Red Blood Count 4.31 M/uL (4.20-5.40); White Blood Count 11.50 K/ul (4.8-10.8)
[2025-05-06 04:46] LABS: Alanine Aminotransferase 16.0 U/L (7-52); Albumin Globulin Ratio 1.9 (0.9-2); Albumin Level 3.5 gm/dl (3.4-5.0); Alkaline Phosphatase 62.0 U/L (34-104); Anion Gap 7.0 (3-11); Bilirubin,Total 0.8 mg/dl (0.2-1.0); Blood Urea Nitrogen 11.0 mg/dl (6-23); Calcium 8.6 mg/dl (8.6-10.3); Carbon Dioxide 27.0 mmol/L (21-32); Chloride 105.0 mmol/L (98-107); Creatinine Clr Calc Pharmacy 96.6 ml/min; Globulin 1.8 gm/dl (2.5-4.0); Glucose 107.0 mg/dl (70-99(Fasting)); Magnesium 2.0 mg/dl (1.7-2.4); Potassium 3.3 mmol/L (3.5-5.1); Sodium 139.0 mmol/L (136-145); Total Protein 5.3 gm/dl (6.0-8.3)
[2025-05-06 05:10] LABS: Immature Granulocytes # (auto) 0.04 K/uL (0.01-0.20); Immature Granulocytes % (auto) 0.3 %
--- NOTE | 2025-05-06 08:22 | Hospitalist Progress Note ---
Date of Service May 06, 2025 Assessment & Plan (1) Lumbar radiculopathy: (2) Status post lumbar laminectomy: (3) Hypercholesteremia: (4) Chronic back pain: (5) Hypothyroidism: (6) Hypertension: (7) Atrial fibrillation: Plan This is a 79 yo female with PMH of HLD, hypertension, hypothyroidism, chronic atrial fibrillation (on Eliquis), and lumbar radiculopathy who underwent lumbar laminectomy on 05/03/[address] Dozier. We have been consulted for post operative medical management. Lumbar radiculopathy s/p laminectomy POD#3 s/p L3-4 laminectomy with medial facetectomy and L4-5 laminectomy with medial facetectomy by Dr. Dozier on 05/03/2025 Per ortho for pain control, wound care, anticoagulation and activities Monitor H&H (hgb stable at 12-13, EBL 50ml) Continue incentive spirometry PT/OT recommending home with ABY following Post operative ileus, colitis Patient with nausea and bloating on 05/05 KUB noted mildly prominent bowel loops that may be due to ileus CTAP noted significant diffuse colitis in descending colon, questionable area of intussusception in proximal portion of ascending colon Cdiff ordered but not collected yet Initially placed on bowel rest and IVF Symptoms improving Advance diet to clear liquids Continue Unasyn Hypertension Continue HCTZ and valsartan Hypothyroidism Continue levothyroxine Chronic atrial fibrillation Continue Eliquis and metoprolol DVT Prophylaxis: SCDs per primary team Code Status: FULL CODE PCP: Jethro Mckoy Disposition: possible dc tomorrow Thank you for this consultation. We will continue to follow this patient with you. A member of the [facility] [place] available 06/12 via the role in [employer] - please don't hesitate to reach out with questions. Patient seen in collaboration with Dr. Michael. Please see addendum. I spent a total of 60 minutes coordinating, documenting and providing care for this patient excluding time spent in the performance of separately billed services or time spent by another provider/QHP. Admission and Anticipated Discharge Date Admission Date: May 03, 2025 Supervising Physician Co-Signing Physician Notes 05/04/2025 The patient was seen and examined in the medical floor in presence of the daughter She is a status post L3-L4 laminectomies on 05/03/2025 Has been doing much better following the surgery and complains to have ongoing back pain without radiation Denies any other significant symptoms On examination Lying in bed without any significant discomfort except some back pain Remains hemodynamically stable Chest was clear to auscultate bilaterally HeartS1-S2, regular Abdomenbenign Extremitiestrace edema bilaterally Her labs, imaging studies, medications reviewed Status post L3-L4 laminectomies and has been having minimal pain in the back without any other significant symptoms Her other significant medical conditions remained stable as above Agree with assessment plan as outlined above by Patricia Decker PA-C and take the full responsibility of care in the hospital I spent a total of 20 minutes seeing the patient, examining her, reviewing the chart and medications, and managing care. Dr Samantha Michael 05/05/2025 The patient was seen and examined in medical floor in presence of the daughters She has been complaining of some abdominal discomfort without distention, nausea and/or vomiting She has been passing gas but bowel has not moved KUB showed Distended bowel loops but no definite obstruction Remains hemodynamically stable Physical examination remains unremarkable and abdomen is benign and mildly distended and nontender If the patient is comfortable enough going home that will be okay as long as she keeps moving and takes the laxatives If she is able to void we can give her Fleet enema and after bowel movement she can be discharged Agree with assessment plan as outlined above by Patricia Decker PA-C and take the full responsibility of care in the hospital I spent a total of 20 minutes evaluating the patient, examining her, reviewing the chart and also the investigation and plan of care with DR Samantha michael The patient has had bowel movement following Fleet enema but her condition deteriorated with Increasing abdominal distention and pain, tachycardia and the patient was becoming lethargic Intravenous fluid was administered with intravenous Tylenol and the patient kept n.p.o. Will get a CAT scan of the abdomen to rule out any possibilities of obstruction and discharge was canceled for today. The family members are aware and agreeable. DR Samantha Michael 05/06/2025 The patient was seen and examined in medical floor in the presence of the family members She has been feeling better but the abdomen remains distended Does not feel bloated and the pain is more pain most She has had bowel movement Denies any shortness of breath, any chest pain or palpitation Her examination remains remarkable for distended abdomen but soft with normal bowel sound Remains hemodynamically stable She has been getting antibiotics for nonspecific colitis and is still awaiting stool for C. difficile toxin test She has not started with oral clears and will be observed for now Agree with assessment plan as outlined above ASHUTOSH Brady and take the full responsibility of care in the hospital . I spent total of 20 minutes seeing the patient, examining her, review medications and tests and planning of care Dr Samantha Michael Subjective Patient seen sitting in bed Reports low back pain is controlled No leg pain or radiculopathy Feels very hungry and slightly nauseous, no vomiting No abdominal pain, bloating is stable, having BMs Denies chest pain and vomiting Review of Systems Review of Systems: All systems reviewed & are unremarkable except as noted in HPI & below Physical Exam Physical Exam: General/Psych: WD/WN, sitting up in bed, NAD, conversing easily Head: normocephalic, atraumatic Eyes: normal inspection, PERRL, conjunctivae pink Neck: normal visual inspection, trachea midline Respiratory: normal respiratory effort, lungs clear to auscultation, no wheeze/rales/rhonchi, no accessory muscle use Cardiovascular: regular rate and rhythm, no murmur/rub/gallop Extremities: no cyanosis or clubbing, normal peripheral pulses, no BLE edema, sensation intact BLE Abdomen/GI: normal bowel sounds, soft, nontender Neurologic/MSK: A+Ox3, motor strength 5/5, moves all extremities Skin: no rashes, normal color, warm and dry, island dressing c/d/i Results & Data Results & Data Vital Signs (Past 12 Hours) Vital Signs Temp Pulse Pulse Resp BP Pulse Ox O2 Del Method 05/06/25 07:11 36.5 C 82 18 100/60 97 Nasal Cannula 05/05/25 23:29 36.7 C 96 H 18 132/79 95 Nasal Cannula O2 Flow Rate 05/06/25 07:11 2 05/05/25 23:29 Laboratory Results Short CBC 05/06/25 Range/Units 03:30 WBC 11.50 H (4.8-10.8) K/ul Hgb 12.8 (12.0-16.0) g/dL Hct 38.8 (37.0-47.0) % Plt Count 276 (130-400) K/uL BMP 12/22/25 03:30 Sodium 139 Potassium 3.3 L Chloride 105 Carbon Dioxide 27 BUN 11 Creatinine 0.53 L Glucose 107 H Calcium 8.6 Liver Function 05/06/25 Range/Units 03:30 Total Bilirubin 0.8 (0.2-1.0) mg/dl AST 19 (13-39) U/L ALT 16 (7-52) U/L Alkaline Phosphatase 62 (34-104) U/L Albumin 3.5 (3.4-5.0) gm/dl I have independently reviewed and interpreted patient's labs including CBC and CMP Medications Administered Current Inpatient Medications Acetaminophen (Acetaminophen 500 Mg Tab) 1,000 mg PO Q8H PRN PRN Reason: MILD Pain (1,2,3) & Pre PT Stop: 06/02/25 17:10 Apixaban (Apixaban 5 Mg Tablet) 5 mg PO BID [facility] Stop: 06/03/25 20:59 Last Admin: 05/06/25 10:04 Dose: 5 mg Bisacodyl (Bisacodyl 10 Mg Supp) 10 mg [place] DAILY PRN PRN Reason: Constipation Stop: 06/02/25 17:10 Famotidine (Famotidine 20 Mg Tab) 20 mg PO Q12H PRN PRN Reason: Dyspepsia Stop: 06/02/25 17:10 Hydralazine HCl (Hydralazine Hcl 20 Mg/Ml Vial) 10 mg IV Q6H PRN PRN Reason: Blood Pressure - High Stop: 06/04/25 19:14 Hydrochlorothiazide (Hydrochlorothiazide 25 Mg Tab) 25 mg PO QAM [facility] Stop: 06/03/25 08:59 Last Admin: 05/06/25 10:04 Dose: 25 mg Hydromorphone HCl (Hydromorphone Inj 0.5 Mg/0.5 Ml Syr) 0.5 mg IV Q3H PRN PRN Reason: MODERATE Pain(4,5,6)/Pre PT Stop: 05/17/25 17:10 Hydromorphone HCl (Hydromorphone Inj 1 Mg/Ml Syringe) 1 mg IV Q3H PRN PRN Reason: SEVERE Pain (7,8,9,10) Stop: 05/17/25 17:10 Hydroxyzine HCl (Hydroxyzine Hcl 25 Mg Tab) 25 mg PO Q8H PRN PRN Reason: Anxiety Stop: 06/02/25 17:10 Sodium Chloride (Nss) 1,000 mls @ 100 mls/hr IV .Q10H [facility] Stop: 05/08/25 16:44 Last Admin: 05/06/25 05:10 Dose: 100 mls/hr Acetaminophen (Ofirmev) 1,000 mg in 100 mls @ 400 mls/hr IV Q8H [facility] Stop: 05/08/25 16:59 Last Infusion: 05/06/25 10:22 Dose: Infused Ampicillin Sodium/Sulbactam Sodium (Unasyn) 3,000 mg in 100 mls @ 200 mls/hr IV Q6H [facility] Stop: 05/09/25 19:14 Last Infusion: 05/06/25 14:33 Dose: Infused Influenza Virus Vaccine Quadrival (Do Not Administer Flu Vaccine) 1 each N/A PRN PRN PRN Reason: Notification Stop: 06/02/25 17:10 Levothyroxine Sodium (Levothyroxine Sodium 50 Mcg Tablet) 50 mcg PO DAILYBB [facility] Stop: 06/03/25 06:29 Last Admin: 05/06/25 05:10 Dose: 50 mcg Metoprolol Succinate (Metoprolol Succ 25mg Ext Rel Tab) 25 mg PO QPM [facility] Stop: 06/02/25 20:59 Last Admin: 05/05/25 20:13 Dose: 25 mg Naloxone HCl (Naloxone Hcl 0.4 Mg/1 Ml Vial/Carp) 0.1 mg IV Q5M PRN PRN Reason: Oversedation/Resp depression Stop: 06/02/25 17:10 Ondansetron HCl (Ondansetron Inj 2 Mg/Ml 2 Ml Vial) 4 mg IV Q6H PRN PRN Reason: Nausea &/or Vomiting Stop: 06/02/25 17:10 Ondansetron HCl (Ondansetron 4 Mg Od Tab) 4 mg PO Q6H PRN PRN Reason: Nausea Stop: 06/02/25 17:10 Last Admin: 05/05/25 04:46 Dose: 4 mg Oxycodone HCl (Oxycodone Hcl Ir 5 Mg Tab (Immediate Release)) 5 - 10 mg PO Q4H PRN PRN Reason: MOD/SEV Pain & Pre PT Stop: 05/17/25 17:10 Last Admin: 05/06/25 05:16 Dose: 10 mg Pneumococcal Polyvalent Vaccine (Do Not Administer Pneumococcal Vaccine) 1 each N/A PRN PRN PRN Reason: Notification Stop: 06/02/25 17:10 Senna/Docusate Sodium (Docusate Sodium/Senna 50/8.6mg Tab) 2 tab PO HS [facility] Stop: 06/02/25 20:59 Last Admin: 05/05/25 20:12 Dose: 2 tab Sodium Biphosphate/Sodium Phosphate (Sod Phosphate/Sod Biphosphate Enema 132 Ml Btl) 132 ml [place] ONE PRN PRN Reason: Constipation Stop: 06/02/25 17:10 Tizanidine HCl (Tizanidine Hcl 4 Mg Tablet) 4 mg PO Q8H PRN PRN Reason: Muscle Spasm Stop: 06/02/25 17:10 Valsartan (Valsartan 80 Mg Tab) 160 mg PO QPM [facility] Stop: 06/03/25 20:59 Last Admin: 05/05/25 20:13 Dose: 160 mg
--- NOTE | 2025-05-06 10:07 | Orthopedic Progress Note ---
Date of Service May 06, 2025 Assessment & Plan (1) Status post lumbar laminectomy: (2) Colitis: Plan * Continue Current Treatment * Disposition: home * Managing well from a surgical standpoint, however developed abdominal pain over the weekend prompting KUB demonstrating possible ileus, and CT abdomen with diffuse colitis * Bowel movement(s) yesterday, pain improved. * Appreciate hospital medicine team recommendations regarding colitis management * Abx per hospitalist recommendations * Daily treatment: Physical Therapy/ Occupational Therapy per protocol * Weight bearing status: [] * Continue to monitor for ABLA * Pain control * DVT prophylaxis, stockings/SCDs * Office/hospital f/u 2 weeks for progress check and staple/suture removal * Plan for discharge once medically cleared regarding colitis Subjective . Active Problems: S/p L3-4 laminectomies, colitis POD 3 79 y/o female s/p L3-4 laminectomies and hospital onset colitis. Doing well overall, pain managed and improved function. Had bowel movement overnight which has improved her abdominal pain. CT obtained yesterday demonstrates diffuse colitis without abscess, obstruction, or perforation. Denies fever/chills, chest pain/SOB, nausea/vomiting. Otherwise no complaints. Review of Systems All systems reviewed & are unremarkable except as noted in HPI & below. Physical Exam . * General: Alert and oriented, no acute distress * Constitutional: well-developed, well-nourished. * Respiratory: Normal respiratory effort, no distress * Gastrointestinal: No tenderness to palpation, no rigidity or guarding. * Skin: No rash or lesion. * Neurologic: Grossly normal * Musculoskeletal: Surgical dressing CDI. Lumbar spine region without obvious deformity or overlying skin changes. Minimal tenderness of surgical region, otherwise no tenderness b/l buttock or LE. Lumbar flexion/extension and rotation ROM with minimal pain. AROM b/l hip flexion, knee flexion/extension, ankle flexion/extension intact. Sensation intact plantar/dorsal foot. Brisk capillary refill. Results & Data Results & Data Laboratory Results . Diagnostic Findings . KUB X-Ray 05/05/25 10:28 2 views of the abdomen were obtained Findings: There are mildly prominent air-filled loops of small and large bowel that may be due to ileus. No renal or ureteral calculi are seen. There are surgical skin bere. No osseous abnormality is seen Impression: Mildly prominent bowel loops that may be due to ileus. Obstruction is less likely but cannot be excluded Electronically signed by Wes Rivas 05-05-2025 11:13 AM Abdomen/Pelvis CT 05/05/25 16:36 INDICATION: Abdominal pain, nausea, vomiting COMPARISON: None TECHNIQUE: Contiguous axial CT images were obtained through the abdomen and pelvis. Dose reduction according to patient size and/or automated exposure control techniques have been utilized for this exam. FINDINGS: CT ABDOMEN: LUNG BASES: Cardiomegaly. Coronary artery calcifications. Minor bibasilar atelectasis or infiltrates. LIVER: No worrisome hepatic lesions. Multiple hepatic granulomas. SPLEEN: Multiple splenic granulomas. GALLBLADDER: Unremarkable. KIDNEYS: No hydronephrosis or nephrolithiasis. No solid renal lesions. PANCREAS: Unremarkable. ADRENAL GLANDS: Unremarkable. PROXIMAL BOWEL: No small bowel obstruction. RETROPERITONEUM: No AAA. No significant lymphadenopathy. OTHER: No abscess. CT PELVIS: URETERS: Unremarkable. URINARY BLADDER: No bladder calculi. PELVIC ORGANS: Unremarkable. DISTAL BOWEL: Abnormal diffuse thickening of the descending colon. Colitis changes are suspected. Question of intussusception in the proximal portion of the descending colon near the splenic flexure for example axial image 102, coronal image 69. Distended ascending and transverse colon with air and fecal material. Large amount of fecal material noted in the rectum. OTHER: No significant lymphadenopathy. There is no free pelvic fluid. IMPRESSION: Suspect significant diffuse colitis changes of the descending colon. Question of an area of intussusception in the proximal portion of the ascending colon. Minor bibasilar atelectasis or infiltrates. Electronically signed by Julian Perry 05-05-2025 6:44 PM PG Care Time/CCT Total # of Minutes Spent Total Time Spent with Patient: Total time spent is greater than 50% in coordination of care (as documented) at patient's floor/unit and/or counseling patient: Coding Level of Care Code 03980 Post Operative Follow-Up Diagnoses Status post lumbar laminectomy Z98.890 Colitis K52.9
[2025-05-06] MEDS: POTASSIUM CHLORIDE CRTAB 20 MEQ TABCR PO STA (10:12)
[2025-05-06 17:37] LABS: Cdiff Toxin B Gene (2yr or >) Negative Cdiff Gene (Neg)
[2025-05-06 21:58] VITALS: TEMP 98.2
[2025-05-07 07:13] VITALS: BP 147/87; PULSE 86; RESP 17; O2SAT 95
[2025-05-07 08:22] LABS: Hematocrit (blood only) 39.0 % (37.0-47.0); Hemoglobin 13.2 g/dL (12.0-16.0); Mean Corpuscular Hemoglobin 29.9 pg (25.0-34.0); Mean Corpuscular Volume 88.4 fL (80.0-100.0); Platelet Count 264 K/uL (130-400); RDW Standard Deviation 42.1 fL (36.4-46.3); Red Blood Count 4.41 M/uL (4.20-5.40); White Blood Count 6.69 K/ul (4.8-10.8)
[2025-05-07 08:39] LABS: Anion Gap 7.0 (3-11); Blood Urea Nitrogen 7.0 mg/dl (6-23); Calcium 8.6 mg/dl (8.6-10.3); Carbon Dioxide 27.0 mmol/L (21-32); Chloride 107.0 mmol/L (98-107); Creatinine Clr Calc Pharmacy 104.4 ml/min; Glucose 105.0 mg/dl (70-99(Fasting)); Magnesium 1.9 mg/dl (1.7-2.4); Potassium 3.6 mmol/L (3.5-5.1); Sodium 141.0 mmol/L (136-145)
--- NOTE | 2025-05-07 08:49 | Orthopedic Progress Note ---
Date of Service May 07, 2025 Assessment & Plan (1) Colitis: (2) Status post lumbar laminectomy: Plan * Continue Current Treatment * Disposition: home * Managing well from a surgical standpoint, however developed abdominal pain over the weekend prompting KUB demonstrating possible ileus, and CT abdomen with diffuse colitis * Bowel movement(s) yesterday, pain improved. * Appreciate hospital medicine team recommendations regarding colitis management * Abx per hospitalist recommendations * Daily treatment: Physical Therapy/ Occupational Therapy per protocol * Weight bearing status: as tolerated. * Continue to monitor for ABLA * Pain control * DVT prophylaxis, stockings/SCDs * Office/hospital f/u 2 weeks for progress check and staple/suture removal * Plan for discharge once medically cleared regarding colitis, patient to received full diet today. Subjective Active Problems: S/p L3-4 laminectomies, colitis POD 4 79 y/o female s/p L3-[address] Dozier 05/03/25, hospital onset colitis. Doing well overall, pain managed and improved function. Had small bowel movement yesterday which has improved her abdominal pain. CT obtained Tuesday demonstrates diffuse colitis without abscess, obstruction, or perforation. Denies fever/chills, chest pain/SOB, nausea/vomiting. Otherwise no complaints. Patient to start full diet this morning. Review of Systems All systems reviewed & are unremarkable except as noted in HPI & below. Physical Exam . * General: Alert and oriented, no acute distress * Constitutional: well-developed, well-nourished. * Respiratory: Normal respiratory effort, no distress * Gastrointestinal: No tenderness to palpation, no rigidity or guarding. * Skin: No rash or lesion. * Neurologic: Grossly normal * Musculoskeletal: Surgical dressing changed, no drainage from surgical site or drain site. Lumbar spine region without obvious deformity or overlying skin changes. Minimal tenderness of surgical region, otherwise no tenderness b/l buttock or LE. Lumbar flexion/extension and rotation ROM with minimal pain. AROM b/l hip flexion, knee flexion/extension, ankle flexion/extension intact. Sensation intact plantar/dorsal foot. Brisk capillary refill. Results & Data Results & Data Laboratory Results . Laboratory Results - last 24 hr 05/06/25 05/06/25 05/07/25 03:30 Unknown 08:01 WBC 6.69 RBC 4.41 Hgb 13.2 Hct 39.0 MCV 88.4 MCH 29.9 MCHC 33.8 RDW Std Deviation 42.1 RDW Coeff of Vivian 13.0 Plt Count 264 MPV 10.1 Blood Smear Review Sodium 141 Potassium 3.6 Chloride 107 Carbon Dioxide 27 Anion Gap 7 BUN 7 Creatinine 0.49 L Est Cr Clr Drug Dosing 104.4 eGFR 96.41 BUN/Creatinine Ratio 14.3 Glucose 105 H Calcium 8.6 Magnesium 1.9 Stl C. diff Tox B Gene Negative Cdiff Gene Stl C. diff [id number] NEGATIVE Flow Cytometry Comment Pending Diagnostic Findings . Spine X-Ray 05/03/25 11:20 FL spine 1V any level CLINICAL HISTORY: L3-L4 and L4-L5 laminectomies. COMPARISON STUDY: Lumbar spine MRI April 02, 2025. Fluoroscopy time: 10 seconds. Number of fluoroscopic images: 2. Ka,r: 9.82 mGy. FINDINGS: Fluoroscopy was provided during lumbar spine laminectomy. Initial image demonstrates surgical retractors and sponge markers which were not present on the subsequent image. Surgical drain is in place. Superior surgical instrument is directed over the posterior elements at the L3 level. The inferior surgical instrument is directed over the posterior elements at the L5 level. IMPRESSION: Fluoroscopy provided during L3-L4 and L4-L5 laminectomies. ACT 112: Negative or not required by law. Electronically signed by: Clark Allen M.D. 05/03/2025 3:15 PM KUB X-Ray 05/05/25 10:28 2 views of the abdomen were obtained Findings: There are mildly prominent air-filled loops of small and large bowel that may be due to ileus. No renal or ureteral calculi are seen. There are surgical skin bere. No osseous abnormality is seen Impression: Mildly prominent bowel loops that may be due to ileus. Obstruction is less likely but cannot be excluded Electronically signed by Wes Rivas 05-05-2025 11:13 AM Abdomen/Pelvis CT 05/05/25 16:36 INDICATION: Abdominal pain, nausea, vomiting COMPARISON: None TECHNIQUE: Contiguous axial CT images were obtained through the abdomen and pelvis. Dose reduction according to patient size and/or automated exposure control techniques have been utilized for this exam. FINDINGS: CT ABDOMEN: LUNG BASES: Cardiomegaly. Coronary artery calcifications. Minor bibasilar atelectasis or infiltrates. LIVER: No worrisome hepatic lesions. Multiple hepatic granulomas. SPLEEN: Multiple splenic granulomas. GALLBLADDER: Unremarkable. KIDNEYS: No hydronephrosis or nephrolithiasis. No solid renal lesions. PANCREAS: Unremarkable. ADRENAL GLANDS: Unremarkable. PROXIMAL BOWEL: No small bowel obstruction. RETROPERITONEUM: No AAA. No significant lymphadenopathy. OTHER: No abscess. CT PELVIS: URETERS: Unremarkable. URINARY BLADDER: No bladder calculi. PELVIC ORGANS: Unremarkable. DISTAL BOWEL: Abnormal diffuse thickening of the descending colon. Colitis changes are suspected. Question of intussusception in the proximal portion of the descending colon near the splenic flexure for example axial image 102, coronal image 69. Distended ascending and transverse colon with air and fecal material. Large amount of fecal material noted in the rectum. OTHER: No significant lymphadenopathy. There is no free pelvic fluid. IMPRESSION: Suspect significant diffuse colitis changes of the descending colon. Question of an area of intussusception in the proximal portion of the ascending colon. Minor bibasilar atelectasis or infiltrates. Electronically signed by Julian Perry 05-05-2025 6:44 PM PG Care Time/CCT Total # of Minutes Spent Total Time Spent with Patient: Total time spent is greater than 50% in coordination of care (as documented) at patient's floor/unit and/or counseling patient: Coding Level of Care Code 70800 Post Operative Follow-Up Diagnoses Colitis K52.9 Status post lumbar laminectomy Z98.890
--- NOTE | 2025-05-07 11:16 | Hospitalist Progress Note ---
Date of Service May 07, 2025 Assessment & Plan (1) Lumbar radiculopathy: (2) Status post lumbar laminectomy: (3) Hypercholesteremia: (4) Chronic back pain: (5) Hypothyroidism: (6) Hypertension: (7) Atrial fibrillation: Plan This is a 79 yo female with PMH of HLD, hypertension, hypothyroidism, chronic atrial fibrillation (on Eliquis), and lumbar radiculopathy who underwent lumbar laminectomy on 05/03/[address] Dozier. We have been consulted for post operative medical management. Lumbar radiculopathy s/p laminectomy POD#4 s/p L3-4 laminectomy with medial facetectomy and L4-5 laminectomy with medial facetectomy by Dr. Dozier on 05/03/2025 Pain is controlled No evidence of blood loss anemia - Hgb has been stable at 12-13 PT/OT recommended home health Referral placed to [facility] for therapy Post operative ileus Diffuse colitis Patient developed nausea and bloating on 05/05 KUB noted mildly prominent bowel loops that may be due to ileus CTAP noted significant diffuse colitis in descending colon, questionable area of intussusception in proximal portion of ascending colon Cdiff negative Initially placed on bowel rest, IV Unasyn, IVF Tolerated advanced diet with improved symptoms Discharged to home with Augmentin for total of 10 days of antibiotics and zofran PRN Hypertension Continue HCTZ and valsartan Hypothyroidism Continue levothyroxine Chronic atrial fibrillation Continue Eliquis and metoprolol Thank you for this consultation. We will continue to follow this patient with you. [facility] is available 06/12 via the role in [employer] - please don't hesitate to reach out with questions. Patient seen in collaboration with Dr. Michael. Please see addendum. I spent a total of 50 minutes coordinating, documenting and providing care for this patient excluding time spent in the performance of separately billed services or time spent by another provider/QHP. Admission and Anticipated Discharge Date Admission Date: May 06, 2025 Supervising Physician Co-Signing Physician Notes 05/04/2025 The patient was seen and examined in the medical floor in presence of the daughter She is a status post L3-L4 laminectomies on 05/03/2025 Has been doing much better following the surgery and complains to have ongoing back pain without radiation Denies any other significant symptoms On examination Lying in bed without any significant discomfort except some back pain Remains hemodynamically stable Chest was clear to auscultate bilaterally HeartS1-S2, regular Abdomenbenign Extremitiestrace edema bilaterally Her labs, imaging studies, medications reviewed Status post L3-L4 laminectomies and has been having minimal pain in the back without any other significant symptoms Her other significant medical conditions remained stable as above Agree with assessment plan as outlined above by Patricia Decker PA-C and take the full responsibility of care in the hospital I spent a total of 20 minutes seeing the patient, examining her, reviewing the chart and medications, and managing care. Dr Samantha Michael 05/05/2025 The patient was seen and examined in medical floor in presence of the daughters She has been complaining of some abdominal discomfort without distention, nausea and/or vomiting She has been passing gas but bowel has not moved KUB showed Distended bowel loops but no definite obstruction Remains hemodynamically stable Physical examination remains unremarkable and abdomen is benign and mildly distended and nontender If the patient is comfortable enough going home that will be okay as long as she keeps moving and takes the laxatives If she is able to void we can give her Fleet enema and after bowel movement she can be discharged Agree with assessment plan as outlined above by Patricia Decker PA-C and take the full responsibility of care in the hospital I spent a total of 20 minutes evaluating the patient, examining her, reviewing the chart and also the investigation and plan of care with DR Samantha michael The patient has had bowel movement following Fleet enema but her condition deteriorated with Increasing abdominal distention and pain, tachycardia and the patient was becoming lethargic Intravenous fluid was administered with intravenous Tylenol and the patient kept n.p.o. Will get a CAT scan of the abdomen to rule out any possibilities of obstruction and discharge was canceled for today. The family members are aware and agreeable. DR Samantha Michael 05/06/2025 The patient was seen and examined in medical floor in the presence of the family members She has been feeling better but the abdomen remains distended Does not feel bloated and the pain is more pain most She has had bowel movement Denies any shortness of breath, any chest pain or palpitation Her examination remains remarkable for distended abdomen but soft with normal bowel sound Remains hemodynamically stable She has been getting antibiotics for nonspecific colitis and is still awaiting stool for C. difficile toxin test She has not started with oral clears and will be observed for now Agree with assessment plan as outlined above ASHUTOSH Brady and take the full responsibility of care in the hospital . I spent total of 20 minutes seeing the patient, examining her, review medications and tests and planning of care Dr Samantha Michael 05/07/2025 The patient was seen and examined in medical floor in presence of the family members She has been much better and has been ambulating without any difficulties though with the use of walking aid Denies any abdominal pain and did not have any evidence of C. difficile colitis Remains hemodynamically stable and afebrile Her abdominal examination remained unremarkable She will be given oral Augmentin to finish the course and will be discharged home this afternoon Agree with assessment and plan as outlined above by ASHUTOSH Brady and take the full responsibility of care in the hospital I spent a total of 15 minutes seeing the patient, discussion about the findings and also of medications and planning of care. DR Samantha Michael Subjective Patient seen sitting in chair Reports low back pain is controlled No leg pain or radiculopathy Tolerated clear liquid diet without abdominal pain Feels bloating is improved Still having loose stools Review of Systems Review of Systems: All systems reviewed & are unremarkable except as noted in HPI & below Physical Exam Physical Exam: General/Psych: WD/WN, sitting up in bed, NAD, conversing easily Head: normocephalic, atraumatic Eyes: normal inspection, PERRL, conjunctivae pink Neck: normal visual inspection, trachea midline Respiratory: normal respiratory effort, lungs clear to auscultation, no wheeze/rales/rhonchi, no accessory muscle use Cardiovascular: irregularly irregular rate and rhythm, no murmur/rub/gallop Extremities: no cyanosis or clubbing, normal peripheral pulses, no BLE edema, sensation intact BLE Abdomen/GI: normal bowel sounds, soft, nontender Neurologic/MSK: A+Ox3, motor strength 5/5, moves all extremities Skin: no rashes, normal color, warm and dry, island dressing c/d/i Results & Data Results & Data Vital Signs (Past 12 Hours) Vital Signs Temp Pulse Resp BP Pulse Ox O2 Del Method 05/07/25 10:17 Room Air 05/07/25 07:12 36.8 C 86 17 147/87 H 95 Room Air 05/07/25 00:46 36.8 C 99 H 18 125/77 94 Room Air Laboratory Results Short CBC 05/07/25 Range/Units 08:01 WBC 6.69 (4.8-10.8) K/ul Hgb 13.2 (12.0-16.0) g/dL Hct 39.0 (37.0-47.0) % Plt Count 264 (130-400) K/uL BMP 05/07/25 08:01 Sodium 141 Potassium 3.6 Chloride 107 Carbon Dioxide 27 BUN 7 Creatinine 0.49 L Glucose 105 H Calcium 8.6 I have independently reviewed and interpreted patient's labs including CBC and BMP Medications Administered Current Inpatient Medications Acetaminophen (Acetaminophen 500 Mg Tab) 1,000 mg PO Q8H PRN PRN Reason: MILD Pain (1,2,3) & Pre PT Stop: 06/02/25 17:10 Apixaban (Apixaban 5 Mg Tablet) 5 mg PO BID [facility] Stop: 06/03/25 20:59 Last Admin: 05/07/25 09:04 Dose: 5 mg Bisacodyl (Bisacodyl 10 Mg Supp) 10 mg [place] DAILY PRN PRN Reason: Constipation Stop: 06/02/25 17:10 Famotidine (Famotidine 20 Mg Tab) 20 mg PO Q12H PRN PRN Reason: Dyspepsia Stop: 06/02/25 17:10 Hydralazine HCl (Hydralazine Hcl 20 Mg/Ml Vial) 10 mg IV Q6H PRN PRN Reason: Blood Pressure - High Stop: 06/04/25 19:14 Hydrochlorothiazide (Hydrochlorothiazide 25 Mg Tab) 25 mg PO QAM [facility] Stop: 06/03/25 08:59 Last Admin: 05/07/25 09:03 Dose: 25 mg Hydromorphone HCl (Hydromorphone Inj 0.5 Mg/0.5 Ml Syr) 0.5 mg IV Q3H PRN PRN Reason: MODERATE Pain(4,5,6)/Pre PT Stop: 05/17/25 17:10 Hydromorphone HCl (Hydromorphone Inj 1 Mg/Ml Syringe) 1 mg IV Q3H PRN PRN Reason: SEVERE Pain (7,8,9,10) Stop: 05/17/25 17:10 Hydroxyzine HCl (Hydroxyzine Hcl 25 Mg Tab) 25 mg PO Q8H PRN PRN Reason: Anxiety Stop: 06/02/25 17:10 Sodium Chloride (Nss) 1,000 mls @ 100 mls/hr IV .Q10H [facility] Stop: 05/08/25 16:44 Last Infusion: 05/07/25 10:53 Dose: Infused Acetaminophen (Ofirmev) 1,000 mg in 100 mls @ 400 mls/hr IV Q8H [facility] Stop: 05/08/25 16:59 Last Infusion: 05/07/25 09:53 Dose: Infused Ampicillin Sodium/Sulbactam Sodium (Unasyn) 3,000 mg in 100 mls @ 200 mls/hr IV Q6H [facility] Stop: 05/09/25 19:14 Last Infusion: 05/07/25 07:52 Dose: Infused Influenza Virus Vaccine Quadrival (Do Not Administer Flu Vaccine) 1 each N/A PRN PRN PRN Reason: Notification Stop: 06/02/25 17:10 Levothyroxine Sodium (Levothyroxine Sodium 50 Mcg Tablet) 50 mcg PO DAILYBB [facility] Stop: 06/03/25 06:29 Last Admin: 05/07/25 06:19 Dose: 50 mcg Metoprolol Succinate (Metoprolol Succ 25mg Ext Rel Tab) 25 mg PO QPM [facility] Stop: 06/02/25 20:59 Last Admin: 05/06/25 21:56 Dose: 25 mg Naloxone HCl (Naloxone Hcl 0.4 Mg/1 Ml Vial/Carp) 0.1 mg IV Q5M PRN PRN Reason: Oversedation/Resp depression Stop: 06/02/25 17:10 Ondansetron HCl (Ondansetron Inj 2 Mg/Ml 2 Ml Vial) 4 mg IV Q6H PRN PRN Reason: Nausea &/or Vomiting Stop: 06/02/25 17:10 Ondansetron HCl (Ondansetron 4 Mg Od Tab) 4 mg PO Q6H PRN PRN Reason: Nausea Stop: 06/02/25 17:10 Last Admin: 05/07/25 05:09 Dose: 4 mg Oxycodone HCl (Oxycodone Hcl Ir 5 Mg Tab (Immediate Release)) 5 - 10 mg PO Q4H PRN PRN Reason: MOD/SEV Pain & Pre PT Stop: 05/17/25 17:10 Last Admin: 05/06/25 05:16 Dose: 10 mg Pneumococcal Polyvalent Vaccine (Do Not Administer Pneumococcal Vaccine) 1 each N/A PRN PRN PRN Reason: Notification Stop: 06/02/25 17:10 Senna/Docusate Sodium (Docusate Sodium/Senna 50/8.6mg Tab) 2 tab PO HS [facility] Stop: 06/02/25 20:59 Last Admin: 05/06/25 21:56 Dose: 2 tab Sodium Biphosphate/Sodium Phosphate (Sod Phosphate/Sod Biphosphate Enema 132 Ml Btl) 132 ml [place] ONE PRN PRN Reason: Constipation Stop: 06/02/25 17:10 Tizanidine HCl (Tizanidine Hcl 4 Mg Tablet) 4 mg PO Q8H PRN PRN Reason: Muscle Spasm Stop: 06/02/25 17:10 Valsartan (Valsartan 80 Mg Tab) 160 mg PO QPM [facility] Stop: 06/03/25 20:59 Last Admin: 05/06/25 22:01 Dose: 160 mg
--- NOTE | 2025-05-07 12:15 | Discharge Summary ---
Date of Service May 07, 2025 Admission HPI (Per Admitting) Patient presents to hospital 05/03/2025 for elective L3-4 laminectomies Principal Diagnosis Same as "Discharge Diagnosis" noted below under Discharge Instructions. Discharge Exam . * General: Alert and oriented, no acute distress * Constitutional: well-developed, well-nourished. * Respiratory: Normal respiratory effort, no distress * Gastrointestinal: No tenderness to palpation, no rigidity or guarding. * Skin: No rash or lesion. * Neurologic: Grossly normal * Musculoskeletal: Surgical dressing changed, no drainage from surgical site or drain site. Lumbar spine region without obvious deformity or overlying skin changes. Minimal tenderness of surgical region, otherwise no tenderness b/l buttock or LE. Lumbar flexion/extension and rotation ROM with minimal pain. AROM b/l hip flexion, knee flexion/extension, ankle flexion/extension intact. Sensation intact plantar/dorsal foot. Brisk capillary refill. Discharge Data Consultations 05/03/25 17:11 Consult Hospitalist Routine Procedures Performed Operation Date: 05/03/25 11:20 Actual Procedures p L3-L4 Laminectomies(Not Applicable) - Marcelo Dozier MD Ordered Studies 05/03/25 11:20 FL spine 1V any level Routine 05/05/25 16:36 CT Abd and Pelvis [CT abd pelvis wo con] Urgent Hospital Course (1) Colitis: (2) Status post lumbar laminectomy: Plan Patient presents to hospital 05/03/2025 for elective L3-4 laminectomies. Procedure was complete without complication. Postoperatively patient was admitted to hospital for pain control, observation, PT/OT. Initially following surgery, patient was doing well and had began to ambulate with PT/OT teams. However over the course of the weekend patient developed worsening abdominal pain, nausea, and 1 episode of vomiting. KUB was ordered demonstrating prominent bowel loops that may be due to ileus. Patient was made NPO, CT abdomen/pelvis demonstrating colitis. The following day patient had a bowel movement with significantly improved abdominal pain and resolved nausea/vomiting. She was then started on a clear liquid diet and progressed to solid diet over the course of today. Currently, patient with no abdominal pain or nausea/vomiting, and is tolerating regular diet. Patient stable for discharge at this time, will follow-up with surgical team as scheduled. PG Care Time/CCT Total # of Minutes Spent Total Time Spent with Patient: Total time spent is greater than 50% in coordination of care (as documented) at patient's floor/unit and/or counseling patient: Discharge Plan Discharge Items Patient Disposition: Home - Home Health Services Reason For Visit: Lumbar Facet Snydrome, Facet Arthropathy Discharge Diagnosis: s/p L3-4, 4-5 laminectomy w/ medial facetectomy Condition on Discharge: Good Activity: As commented below Lifting: No more than 5 pounds Weightbearing: Full weightbearing Non-emergency contact: Surgeon Call non-emergency contact if: your pain is worsening, your temperature is above 101 and your wound has increased drainage Follow-up/Referrals: Jethro Mckoy MD [Primary Care Provider] - 05/15/25 10:40 am (Date & Time 05/15/2025 10:40 AM Provider: Jethro Mckoy MD [facility] ) Diet: Regular Addtl Attending Provider Instructions: Instructions for Non-Fusion Spine Surgery YOU WILL BE PROVIDED WITH A PRESCRIPTION STRENGTH ANTI-INFLAMMATORY MEDICATION. THIS WILL BE THE BEST PAIN MEDICATION FOR THE TYPE OF PAIN YOU WILL EXPERIENCE. DO NOT TAKE ANY HERBAL SUPPLEMENTS MEDICATIONS: Toradol or other prescription non-steroidal anti-inflammatory drugs (NSAIDs): take for 3 days post op for pain control, as long as you do not have a contraindication for NSAIDs from your primary care physician. Oxycodone, Percocet, or Hydrocodone For breakthrough pain. Cyclobenzaprine (Flexeril), Tizanide (Zanaflex), or Methocarbamol (Robaxin) For muscle spasms. Senna-s and Miralax Senna-S twice daily, 17g packet of Miralax with water once daily while taking narcotics. These medications prevent constipation caused by the pain medications. Ondansetron (Zofran) For nausea Cephalexin (Keflex) or Sulfamethoxazole/trimethoprim (Bactrim). Antibiotic. You are given IV antibiotics while in the hospital; you may or may not be given a prescription for home; this will be decided after surgery. Your pre-surgery prescription medications With the exception of anti- inflammatory medications, blood thinners (Coumadin, Plavix, Eliquis, Pradaxa, etc}, or narcotic pain medications, you may resume your home medications. For the above medications, you will be given specific instructions. ACTIVITIES: Walking Walking is mandatory. You need to walk at least once every hour while awake. Walking will help prevent blood clots in your legs and help prevent spasms in your back. Bending/twisting It is safe to gently bend, roll over, sit up, lie on your back and do other normal activities. You may sleep in any position that is comfortable. Avoid athletic activities until further notice. Lifting Do not lift more than 10 lbs until further notice. Driving You may drive when you are no longer taking narcotic pain medications, can safely operate the brake/gas/clutch pedals, and can move your head/neck for visibility. Tobacco All tobacco products are strictly prohibited after surgery. Any use will dramatically increase your risk of complications. This includes vapor cigarettes, marijuana, nicotine patches and gums. Bracing/Cervical Collar Not required; if you are provided a soft collar it is for comfort and may be worn as desired. SURGICAL DRESSING Initial operative dressing is to stay on for 2 days; you may change if it becomes saturated. From then on, change the dressing daily with dry gauze and paper tape. Continue to change dressing until there is no discharge on the dressing. Once there is no discharge on the dressing, you may leave the incision open to air and make sure to keep it out of the sun. For supplies, stop by any local pharmacy. Any type of gauze dressing is acceptable. Do not put any ointments on the wound. SHOWERING You may shower 48 hours after your surgery. Cover the incision with Saran Wrap and tape the edges to prevent water from contacting the incision. If water contacts the incision, pat dry. No baths or submerging the incision until seen in the clinic at follow up appointment. QUESTIONS Please contact the office with questions or concerns: [phone] If outside normal business hours, you will be connected with the on-call physician. Addtl Linux Admin Provider Instructions: You developed nausea and bloating post operatively. We did an x-ray and CT scan of your abdomen which showed possible ileus, which is where your intestines temporarily stop moving as well as colitis, or inflammation of your intestines. We tested you for C diff, which was negative. You were treated with IV antibiotics and slowly advanced your diet. Your symptoms have improved and you are ready to return home. We recommend you complete a course of oral antibiotics and continue to slowly advance your diet at home. We recommend a low fiber diet until your diarrhea improves. A referral was placed for home health services. Our bottle caser will continue to follow and inform you when they hear if you are accepted. MEDICATION CHANGES: Augmentin 875mg by mouth twice daily for 9 more days - last dose in the morning on 05/15/2025 - take with food to prevent stomach upset Zofran 4mg under the tongue as needed twice daily for nausea RECOMMENDATIONS FOR FOLLOW-UP: Please follow up with Dr. Mckoy on 05/15/2025 at 10:40am OTHER INSTRUCTIONS: Seek medical attention if you have: * temperature above 101 * chest pain or trouble breathing * abdominal pain, nausea, vomiting * diarrhea, dark stools or bloody stools * any unanswered questions or concerns Call 911 if symptoms are severe. It has been a pleasure taking care of you. Please take care of yourself. If you have any questions regarding your recent hospitalization please contact [facility] and request Alexandra Montoyaist @ [phone]. Pending Studies at Discharge: No Stand-Alone Forms: [facility], Smoking Cessation Medications and DC Order Prescriptions: New tizanidine 4 mg Tablet 4 mg PO Q8H PRN (Reason: muscle spasticity) 30 Days Qty: 90 1RF acetaminophen [Tylenol Extra Strength] 500 mg Tablet 1,000 mg PO Q8H PRN (Reason: pain) Qty: 60 0RF oxycodone 5 mg Tablet 5 - 10 mg PO Q6H PRN (Reason: pain) Qty: 30 0RF sennosides-docusate sodium [Senokot-S] 8.6-50 mg Tablet 2 tab PO HS Qty: 30 0RF polyethylene glycol 3350 [Miralax] 17 gram Powder In Packet 17 g PO DAILY Qty: 30 0RF amoxicillin-pot clavulanate 875-125 mg tablet 1 tab PO BID Qty: 16 0RF Rx Instructions: Take one tablet by mouth twice daily starting tonight and stopping on 05/15/2025 - take with food to prevent stomach upset ondansetron 4 mg tablet,disintegrating 4 mg PO DAILY Qty: 7 0RF Rx Instructions: Place one tablet under your tongue once daily as needed for nausea Continued levothyroxine 50 mcg tablet 50 mcg PO QAM Eliquis 5 mg tablet 5 mg PO BID metoprolol succinate 25 mg tablet extended release 24 hr 25 mg PO QPM valsartan 160 mg tablet 160 mg PO QPM hydrochlorothiazide 25 mg Tablet 25 mg PO QAM Discontinued meloxicam 15 mg tablet 15 mg PO DAILY Qty: 30 2RF Patient Comments: pt states she is trying to stop med per surgeon instructions Discharge Orders: Discharge Order (Routine); Ordered 05/07/25 Ordered By: Carlos Manuel Negro/Other Patient Handouts: Low-Fiber Diet Admission Data Admit Date/Time: 05/06/25 12:55 Attending Provider: Marcelo Dozier Admit Provider: Marcelo Dozier Primary Care Provider: Jethro Mckoy I. Other Providers: Pamela Elliott; Aubrie Berger I.; Kay Ribeiro; Kamari Michael; Josie Eli; Meeta Mcgraw; Patricia Decker; Angelo Kiran; Kehinde Neff; Mor Steele; Simone Almazan; Igor Tomlin; Gavin Jackson; Latoya Hays; Leyla Lal; Catrachita English; Abena Hidalgo; Kianna Gilbert I.; Mckinley Akers; Daniela Clifton; Beau Wade; González Bueno; Maritza Coker; [place]; Kamran Oglesby; Mio Weiss; Luanne Solis; Robinson James; Lance Page; Stephanie Angela; Karma Szymanski; Karma Moyer; Arie Madrid; [facility],Home Healthcare Other Interventions: Discharge Summary Assessment (RN) Last Done: 05/07/25 12:22
--- NOTE | 2025-05-08 06:39 | Coding Query ---
Please ask the surgeon Your help is needed for correct coding of this account; please clarify if the patients Post-operative Ileus was: ( ) expected out of the surgery ( ) unexpected complication from the surgery ( )other please specify Thank you EILEEN Manzano CCS
--- NOTE | 2025-05-10 04:26 | Coding Query ---
Your help is needed for correct coding of this account; please clarify if the patients Post-operative Ileus was: ( ) expected out of the surgery ( ) unexpected complication from the surgery ( x)other please specify - common occurrence with narcotic use in older patients Thank you EILEEN Manzano CCS
--- NOTE | 2025-05-10 04:26 | Coding Query ---
Your help is needed for correct coding of this account; please clarify if the patients Post-operative Ileus was: ( ) expected out of the surgery ( ) unexpected complication from the surgery ( )other please specify Thank you Manzano R MTDD
== END 2025-05-07 13:29 | disposition home health service (06) | DRG 519 ==
LOC: 3E 10:19 → ASU 10:19